=== PATIENT | male | born 1970 | race Caucasian/White ===

== ENCOUNTER 2016-04-07 21:23 | Emergency (ER) | payer OTHER ==
[~2016-04-07] VITALS: Ht 182.9 cm; Wt 92.9 kg
[~2016-04-07 21:23] MED LIST: ADVIN25050 INH; ALBINS INH; ALBU1AER9 INH; BENZ1SOL OT; CIPR-255 PO; FLNIN NAE; LOSA50TA54 PO; METH5TAB4 PO; NEOM1SUS21 OP; RMR15 PO; ZOLP10TA PO
[2016-04-07 21:29] VITALS: TEMP 36.8; Ht 182.9 cm; Wt 92.9 kg
[2016-04-07] MEDS ORDERED: LOSA100T65 PO (21:59)
[2016-04-07] MEDS ORDERED: RTL10 PO ×2 (21:59)
[2016-04-07] MEDS ORDERED: PRZ/40 PO (21:59)
[2016-04-07] MEDS ORDERED: ATV1 PO (21:59)
[2016-04-07] MEDS ORDERED: DOXE25CA2 PO (21:59)
[2016-04-07] MEDS ORDERED: FLUO20CA36 PO (21:59)
[2016-04-07] MEDS ORDERED: VNTHFA/IN INH (22:01)
[2016-04-07] MEDS ORDERED: ALBINS/ INH (22:03)
[2016-04-07] MEDS ORDERED: ALBUT/IPRATROP 3MG/0.5MG NEB 3 ML VIAL INH STA (22:10)
[2016-04-07] MEDS ORDERED: DEXAMETHASONE SOD INJ 10 MG/ML VIAL IM ONE (22:15)
[2016-04-07] MEDS ORDERED: AZITHROMYCIN 250 MG TAB PO ONE (22:15)
[2016-04-07] MEDS ORDERED: PRED50TA PO (23:23)
[2016-04-07] MEDS ORDERED: ZTHM250 PO (23:23)
--- NOTE | 2016-04-07 23:24 | EMERGENCY ROOM VISIT NOTE ---
History First contact with patient: 22:00 Chief Complaint: RESPIRATORY PROBLEMS Stated Complaint: CONGESTION, TROUBLE BREATHING, COUGHING, ASTHMA Nursing Triage Summary: last nite started asthma History of Present Illness The patient is a 45 year old male who presents to the Emergency Department by private vehicle for evaluation of his cough, congestion, short of breath. The patient reports a long-standing history of asthma. His asthma has actually been well controlled over the last 1.5 years after having sinus surgery and receiving allergy shots. He reports that he does have a nebulizer at home which she uses when the symptoms occur, however he does not have the fittings to use the treatments. Yesterday after work when walking into the cold environment he developed increasing cough and wheezing. He reports that this is consistent with all prior episodes of asthma exacerbation. The patient rates his current discomfort as a 3/10. He denies any fevers, chills, chest pain, palpitations, hemoptysis, productive cough, nausea, vomiting, or abdominal pain. Review of Systems A complete 10-point Review of Systems was discussed with the patient, with pertinent positives and negatives listed in the History of Present Illness. All remaining Review of Systems questions can be considered negative unless otherwise specified. Social History Smoking Status: Current Every Day Smoker Smokeless Tobacco Use: No Alcohol Use: none Marital Status: single Current/Historical Medications Scheduled Azithromycin (Azithromycin), 1 TAB PO DAILY Fluoxetine HCl (Fluoxetine HCl), 20 MG PO QPM Fluoxetine Hcl (Prozac), 40 MG PO QAM Losartan Potassium (Cozaar), 100 MG PO DAILY Methylphenidate HCl (Methylphenidate HCl), 5 MG PO AFTERNOON Methylphenidate HCl (Methylphenidate HCl), 10 MG PO QAM Prednisone (Prednisone), 50 MG PO DAILY Scheduled PRN Albuterol Hfa (Ventolin Hfa), 2 PUFFS INH QID PRN for Shortness of Breath Albuterol Sulf (Proventil 0.083% 2.5MG/3ML), 2.5 MG INH Q4H PRN for SOB/Wheezing Doxepin Hcl (Sinequan), 50-75 MG PO HS PRN for Sleep Lorazepam (Lorazepam), 1 MG PO DAILY PRN for Anxiety Allergies Coded Allergies: No Known Allergies (Unverified , NONE, 04/02/11) Physical Exam Vital Signs Date Time Temp Pulse Resp B/P Pulse Ox O2 Delivery O2 Flow Rate FiO2 1/15/17 23:26 81 18 100/71 95 04/07/16 23:01 81 18 100/ 95 Room Air 04/07/16 21:51 Room Air 04/07/16 21:29 36.8 100 20 107/71 96 Room Air Pain Rating (0-10): 3 Physical Exam VITAL SIGNS - Vital signs and nursing notes were reviewed. GENERAL - 45-year-old male appearing his stated age who is in no acute distress. Communicates well with provider and answers questions appropriately. HEAD - NC/AT. EYES - PERRL with EOMI bilaterally. Sclera anicteric. Palpebral conjunctiva pink and moist with no injection noted. EARS - No deformities of external structures noted on gross examination bilaterally. No pain elicited with palpation of the tragus bilaterally. External auditory canals without discharge or otorrhea. Tympanic membranes pearly louis without retraction or bulging. NOSE - Midline and without cyanosis. No epistaxis or purulent drainage noted. Septum midline without deviation or septal hematoma noted. MOUTH/OROPHARYNX - Without perioral cyanosis. Buccal mucosa pink and moist and without leukoplakia. Tongue midline with equal elevation of palate bilaterally. No tonsillar hypertrophy, erythema, or exudates noted. Good dentition noted. NECK - Neck with FROM. Supple to palpation. LUNGS - Chest wall symmetric without accessory muscle use, intercostals retractions, or central cyanosis. Normal vesicular breath sounds CTA B/L. No wheezes, rales, or rhonchi appreciated. CARDIAC - RRR with S1/S2. No murmur, rubs, or gallops appreciated. No reproducible tenderness to palpation appreciated over the anterior chest wall. ABDOMEN - Abdominal contour flat and without pulsations or visible masses. BS normoactive all four quadrants. No tenderness, palpable masses, hepatosplenomegaly, or ascites noted. PSYCH - A&Ox3 and cooperates fully with examiner. Pt is very pleasant and interacts well with examiner. Medical Decision & Procedures Medications Administered Medications (Trade) Dose Ordered Sig/Carmen Route Start Time Stop Time Status Last Admin Dose Admin Dexamethasone Sodium Phosphate (Decadron Inj) 10 mg NOW ONCE IM 04/07/16 22:15 04/07/16 22:16 DC 04/07/16 22:19 10 MG Azithromycin (Zithromax Tab) 500 mg NOW ONCE PO 04/07/16 22:15 04/07/16 22:16 DC 04/07/16 22:20 500 MG Albuterol/ Ipratropium (Duoneb) 3 ml NOW STAT INH 04/07/16 22:10 04/07/16 22:12 DC 04/07/16 22:18 3 ML ED Course Patient was seen and evaluated by myself. I had a lengthy conversation with the patient regarding symptoms. Patient was offered chest x-ray which she declined. I do not feel that is absolutely necessary at this point. He was provided 10 mg Decadron intramuscularly as well as initial dose of azithromycin orally. He was provided with 1 DuoNeb treatment. The patient was provided the fittings for home for his nebulizer machine. He will be treated with azithromycin and prednisone in the outpatient setting. He has nebulizer treatments for home. The patient will return for any changing or worsening symptoms. Patient discharged home afebrile and in good condition. Medical Decision Given the patient's presentation and stated complaint, I did elect to perform the above-mentioned workup. The patient presents today with congestion and short of breath. The patient has what appears to be reactive airway disease which is worsened with the cold weather. He has no fever. He is not hypoxic. He is not tachypneic. He has no chest pain. His symptoms are consistent with acute asthma exacerbation and possible underlying bronchitis. The patient responded well to DuoNeb treatment. He has breathing treatments at home. He will be placed on prednisone as well as antibiotics. He'll follow-up with his primary care provider from today's visit or return for any changing or worsening symptoms. Patient discharged home afebrile and in good condition. In the evaluation and treatment of this patient, the following differential diagnoses were considered: OH, ASC, Dysrhythmia, Angina, Mediastinitis, GERD, Esophagitis, PE, Pneumonia, Bronchitis, Costochondritis, Rib Fracture, Zoster. Impression Primary Impression: Asthma exacerbation Additional Impression: Reactive airway disease Departure Information Dispostion Home / Self-Care Condition GOOD Prescriptions Azithromycin (Azithromycin) 250 Mg Tab 1 TAB PO DAILY for 4 Days, #4 TAB Prov: Sherif Oconnor PA-C 04/07/16 Prednisone (Prednisone) 50 Mg Tab 50 MG PO DAILY for 4 Days, #4 TAB Prov: Sherif Oconnor PA-C 04/07/16 Referrals Daniel Payne M.D. (PCP) Patient Instructions My [facility] Additional Instructions You have been seen in the emergency department today for an asthma exacerbation. Please use your nebulizers at home as prescribed. You were prescribed Azithromycin to be taken as prescribed. This is an antibiotic. All antibiotics have the potential to cause diarrhea. Stop this medication and contact a medical provider if you were to develop any significant adverse side effects including: wheezing, shortness of breath, passing out, vomiting, or a diffuse rash. Always take antibiotics as directed and COMPLETE the ENTIRE course regardless of the improvement of your symptoms. You have been prescribed Prednisone 50 mg to be taken orally once a day for the next 4 days. This is an anti-inflammatory medicine to be used to help minimize your symptoms. You should take the COMPLETE course of the medication. For pain control, you can use the following [id number] medicines (if >12 yo): - Regular strength (325mg/tab) Tylenol (acetaminophen) 2 tabs every 4-6 hours as needed. Do not exceed 12 tablets in a 24 hour period. Avoid taking more than 4 grams (4000 mg) of Tylenol per day. This includes any other sources of acetaminophen you may take on a regular basis. - Regular strength (200 mg/tab) Advil (ibuprofen) 1-2 tabs every 4-6 hours as needed. Do not exceed a dose of 3200 mg per day. Please follow-up with your primary care provider from today's visit. Return for any changing or worsening symptoms. Problem Qualifiers
[2016-04-07 23:26] VITALS: BP 100/71; PULSE 81; O2SAT 95
== END 2016-04-07 23:26 | disposition home or self-care (01) ==
LOC: C.EDB 21:24
DX: J45.901 Unspecified asthma with (acute) exacerbation (principal); F17.200 Nicotine dependence, unspecified, uncomplicated

== ENCOUNTER 2016-07-12 18:15 | Emergency (ER) | payer OTHER ==
[~2016-07-12] VITALS: Ht 182.9 cm; Wt 86.0 kg
[~2016-07-12 18:15] MED LIST changes: -ADVIN25050 INH; -ALBINS INH; +ALBINS/ INH; -ALBU1AER9 INH; +ATV1 PO; +AZIT-57 PO; -BENZ1SOL OT; -CIPR-255 PO; +DOXE25CA2 PO; -FLNIN NAE; +FLUO20CA36 PO; +LOSA100T65 PO; -LOSA50TA54 PO; -METH5TAB4 PO; -NEOM1SUS21 OP; +PRZ/40 PO; -RMR15 PO; +RTL10 PO; +VNTHFA/IN INH; -ZOLP10TA PO
[2016-07-12 18:23] VITALS: TEMP 36.9; Ht 182.9 cm; Wt 86.0 kg
[2016-07-12] MEDS ORDERED: KETOROLAC TROMETHAMINE 60 MG/2 ML VIAL IM STA (19:47)
--- NOTE | 2016-07-12 19:53 | EMERGENCY ROOM VISIT NOTE ---
History Report prepared by Shannan: Hu Patel Under the Supervision of: Dr. Bernardino Telles D.O. First contact with patient: 19:43 Chief Complaint: BACK PAIN Stated Complaint: SEVER LOW BACK/KIDNEY PAIN History of Present Illness The patient is a 46 year old male who presents to the Emergency Room with complaints of worsened lower back pain for the past two days. The patient has chronic back pain but notes increased pain. He describes a pressure sensation in his lower back. He has been nauseous for the past two days but has not vomited. The patient denies hematuria, pain with urination, or rectal bleeding. He could not get an appointment with his PCP today. He notes that he has been doing more lifting than usual at work lately. He has a history of kidney disease , including UTIs and kidney stones. He follows up with [facility] for his back. The patient has a history of asthma. Source of History: patient Onset: two days ago Position: back (lower) Quality: pressure Timing: worsening Associated Symptoms: + nausea, No hematochezia, No melena, No urinary symptoms, No vomiting Review of Systems See HPI for pertinent positives & negatives. A total of 10 systems reviewed and were otherwise negative. Past Medical & Surgical Medical Problems: (1) Otitis externa of both ears (2) Otitis media of both ears (3) Urinary tract infection Family History No pertinent family history Social History Smoking Status: Current Every Day Smoker Alcohol Use: none Marital Status: single Current/Historical Medications Scheduled Azithromycin (Azithromycin), 1 TAB PO DAILY Fluoxetine HCl (Fluoxetine HCl), 20 MG PO QPM Fluoxetine Hcl (Prozac), 40 MG PO QAM Losartan Potassium (Cozaar), 100 MG PO DAILY Methylphenidate HCl (Methylphenidate HCl), 5 MG PO AFTERNOON Methylphenidate HCl (Methylphenidate HCl), 10 MG PO QAM Scheduled PRN Albuterol Hfa (Ventolin Hfa), 2 PUFFS INH QID PRN for Shortness of Breath Albuterol Sulf (Proventil 0.083% 2.5MG/3ML), 2.5 MG INH Q4H PRN for SOB/Wheezing Doxepin Hcl (Sinequan), 50-75 MG PO HS PRN for Sleep Lorazepam (Lorazepam), 1 MG PO DAILY PRN for Anxiety Allergies Coded Allergies: No Known Allergies (Unverified , NONE, 04/02/11) Physical Exam Vital Signs Date Time Temp Pulse Resp B/P Pulse Ox O2 Delivery O2 Flow Rate FiO2 07/12/16 20:10 89 16 121/79 98 07/12/16 18:23 36.9 87 16 133/85 97 Room Air Physical Exam GENERAL: Patient is awake, alert, and in no acute distress. Patient is resting comfortably and showing no signs of anxiety EYES: The conjunctivae are clear. The pupils are round and reactive. EARS, NOSE, MOUTH AND THROAT: The nose is without any evidence of any deformity. Mucous membranes are moist tongue is midline NECK: The neck is nontender and supple. RESPIRATORY: Normal respiratory effort is noted there is no evidence of wheezing rhonchi or rales CARDIOVASCULAR: Regular rate and rhythm noted there no murmurs rubs or gallops normal S1 normal S2 GASTROINTESTINAL: The abdomen is soft. Bowel sounds are present in all quadrants. Abdomen is nontender BACK: No midline tenderness or or step-off noted range of motion in flexion extension as well as rotation no signs of muscle spasm noted MUSCULOSKELETAL/EXTREMITIES: There is no evidence of gross deformity full range of motion is noted in the hips and shoulders SKIN: There is no obvious evidence of any rash. There are no petechiae, pallor or cyanosis noted. NEUROLOGIC: Patient is awake alert and oriented x3 strength is symmetric patellar reflexes are 2+ bilaterally Medical Decision & Procedures Laboratory Results Test 07/12/16 00:00 Urine Color YELLOW Urine Appearance CLEAR (CLEAR) Urine pH 5.0 (4.5-7.5) Urine Specific Salix 1.012 (1.000-1.030) Urine Protein NEG (NEG) Urine Glucose (UA) NEG (NEG) Urine Ketones NEG (NEG) Urine Occult Blood TRACE (NEG) Urine Nitrite NEG (NEG) Urine Bilirubin NEG (NEG) Urine Urobilinogen NEG (NEG) Urine Leukocyte Esterase NEG (NEG) Urine WBC (Auto) 1-5 /hpf (0-5) Urine RBC (Auto) 0-4 /hpf (0-4) Urine Hyaline Casts (Auto) 0 /lpf (0-5) Urine Epithelial Cells (Auto) 5-10 /lpf (0-5) Urine Bacteria (Auto) NEG (NEG) Laboratory results per my review. Medications Administered Medications (Trade) Dose Ordered Sig/Carmen Route Start Time Stop Time Status Last Admin Dose Admin Ketorolac Tromethamine (Toradol Inj) 60 mg NOW STAT IM 07/12/16 19:47 07/12/16 20:56 DC 07/12/16 19:52 60 MG ED Course 1942: The patient was evaluated in room B5. A complete history and physical examination were performed. 1946: Toradol 60 mg IM. 2051: Reassessed the patient. Discussed the findings with him. He verbalized understanding and agreement of the treatment plan. The patient is ready for discharge. Medical Decision Prior records/ancillary studies reviewed. Triage Nursing notes reviewed. The patient's history was concerning for back pain. Differential diagnosis: Etiologies such as musculoskeletal, disc herniation, fracture, aortic disease, metastatic disease, cord compression, discitis, infection, renal colic, gastrointestinal, acute exacerbation of chronic back pain, sciatica, cauda equina, as well as others were entertained. The patient is a 46-year-old male who presented to emergency department for evaluation of low back pain. The patient describes atraumatic low back pain which began a few days ago. The patient also has a history of urinary infection the past and thought this could be consistent with a urinary tract infection. The patient had no focal neurologic deficits. He was able to a mildly without difficulty. His pain appeared to be more related to musculoskeletal findings. The patient's urine did not have signs consistent with urinary tract infection. His urinalysis did dip for blood. I discussed this with the patient. He was encouraged to continue all medications as prescribed. He was treated with pain medication in the emergency department. He was also encouraged to follow-up with his primary care physician for further evaluation but return to the emergency department immediately if symptoms change worsen or the need arises. Impression Primary Impression: Low back pain Scribe Attestation The scribe's documentation has been prepared under my direction and personally reviewed by me in its entirety. I confirm that the note above accurately reflects all work, treatment, procedures, and medical decision making performed by me. Departure Information Dispostion Home / Self-Care Referrals Daniel Payne M.D. (PCP) Forms HOME CARE DOCUMENTATION FORM, IMPORTANT VISIT INFORMATION, Work Instructions Patient Instructions ED Back Pain Acute Chronic, My [facility] Additional Instructions Call your family to schedule a follow-up appointment. Rest and avoid any strenuous activity. Continue using Motrin and Tylenol as directed for pain. Problem Qualifiers Primary Impression: Low back pain Chronicity: chronic Back pain laterality: bilateral Sciatica presence: without sciatica Qualified Codes: M54.5 - Low back pain; G89.29 - Other chronic pain
[2016-07-12 20:10] VITALS: BP 121/79; PULSE 89; O2SAT 98
[2016-07-12 20:25] LABS: URINE APPEARANCE CLEAR (CLEAR); URINE BILIRUBIN NEG (NEG); URINE COLOR YELLOW; URINE NITRITE NEG (NEG); URINE SPECIFIC GRAVITY 1.012 (1.000-1.030); UROBILINOGEN NEG (NEG)
[2016-07-12 20:29] LABS: MANUAL MICROSCOPIC REQUIRED? NO; REVIEW REQ? NO
== END 2016-07-12 21:04 | disposition home or self-care (01) ==
LOC: C.EDB 18:16
DX: M54.5 Low back pain (principal); F17.200 Nicotine dependence, unspecified, uncomplicated; Z87.440 Personal history of urinary (tract) infections; Z86.19 Personal history of other infectious and parasitic diseases; Z79.899 Other long term (current) drug therapy

== ENCOUNTER → 2016-07-18 | Outpatient (CLI) | payer OTHER ==
[2016-07-18 15:05] LABS: BASO % 0.7 %; BASO ABS # 0.05 K/uL (0-0.2); COMPLETE YES; EOS % 2.6 %; IG% 0.1 %; LYMPH % 24.7 %; LYMPH ABS # 1.68 K/uL (1.2-3.4); MEAN CELL VOLUME 93.2 fL (80-100); MEAN CORPUSCULAR HEMOGLOBIN 32.8 pg (25-34); MEAN CORPUSCULAR HGB CONC 35.2 g/dl (32-36); MONO % 11.9 %; PLATELET COUNT 242 K/uL (130-400); RED BLOOD COUNT 4.72 M/uL (4.7-6.1)
[2016-07-18 16:00] LABS: ALT/SGPT 22 U/L (12-78); AST/SGOT 13 U/L (15-37); BLOOD UREA NITROGEN 10 mg/dl (7-18); BUN/CREATININE RATIO 12.3 (10-20); CALCIUM 8.4 mg/dl (8.5-10.1); CARBON DIOXIDE 26 mmol/L (21-32); CHLORIDE 108 mmol/L (98-107); CHOLESTEROL 137 mg/dl (0-200); CREATININE 0.83 mg/dl (0.60-1.40); GLUCOSE 93 mg/dl (70-99); POTASSIUM 3.9 mmol/L (3.5-5.1); SODIUM 141 mmol/L (136-145)
[2016-07-18 16:11] LABS: ALB/GLOB RATIO 1.2 (0.9-2); ALKALINE PHOSPHATASE 67 U/L (45-117); CHOLESTEROL/HDL RATIO 2.6; HDL CHOLESTEROL 52 mg/dl; LDL CHOLESTEROL CALCULATED 60 mg/dl; THYROID STIMULATING HORMONE 0.739 uIu/ml (0.300-4.500); TRIGLYCERIDES 127 mg/dl (0-150); VERY LOW DENSITY LIPOPROT CALC 25 mg/dl
== END | disposition home or self-care (01) ==
LOC: C.LAB 14:12
PROVIDERS: ATTEND Psychiatry & Neurology Geriatric Psychiatry
DX: Z79.899 Other long term (current) drug therapy (principal)

== ENCOUNTER → 2017-04-21 | Outpatient (CLI) | payer OTHER | END | disposition home or self-care (01) | LOC: C.LABSPEC 10:56 | PROVIDERS: ATTEND Nurse Practitioner | DX: M54.5 Low back pain (principal); R82.90 Unspecified abnormal findings in urine ==

== ENCOUNTER → 2017-04-21 | Outpatient (CLI) | payer OTHER ==
[2017-04-21 17:16] LABS: BASO % 0.7 %; BASO ABS # 0.05 K/uL (0-0.2); EOS % 2.6 %; HEMATOCRIT 43.9 % (42-52); HEMOGLOBIN 15.3 g/dL (14.0-18.0); IG# 0.02 K/uL (0.00-0.02); LYMPH % 27.5 %; LYMPH ABS # 2.11 K/uL (1.2-3.4); MEAN CELL VOLUME 92.8 fL (80-100); MEAN CORPUSCULAR HEMOGLOBIN 32.3 pg (25-34); MEAN CORPUSCULAR HGB CONC 34.9 g/dl (32-36); MEAN PLATELET VOLUME 9.4 fL (7.4-10.4); MONO % 9.5 %; MONO ABS # 0.73 K/uL (0.11-0.59); NEUT % 59.4 %; NEUT ABS # 4.55 K/uL (1.4-6.5); PLATELET COUNT 243 K/uL (130-400); RED CELL DISTRIBUTION WIDTH CV 12.6 % (11.5-14.5); RED CELL DISTRIBUTION WIDTH SD 42.5 fL (36.4-46.3); WHITE BLOOD COUNT 7.66 K/uL (4.8-10.8)
[2017-04-21 17:33] LABS: ALBUMIN 3.6 gm/dl (3.4-5.0); ALT/SGPT 22 U/L (12-78); AST/SGOT 17 U/L (15-37); BLOOD UREA NITROGEN 12 mg/dl (7-18); CALCIUM 8.1 mg/dl (8.5-10.1); CARBON DIOXIDE 26 mmol/L (21-32); CHOLESTEROL 152 mg/dl (0-200); CREATININE 0.81 mg/dl (0.60-1.40); GLUCOSE 89 mg/dl (70-99); POTASSIUM 3.9 mmol/L (3.5-5.1); SODIUM 137 mmol/L (136-145)
[2017-04-21 17:36] LABS: ALKALINE PHOSPHATASE 67 U/L (45-117); LDL CHOLESTEROL CALCULATED 92 mg/dl; TOTAL PROTEIN 6.7 gm/dl (6.4-8.2)
== END | disposition home or self-care (01) ==
LOC: C.LABBFT 13:45
PROVIDERS: ATTEND Nurse Practitioner
DX: I10 Essential (primary) hypertension (principal)

== ENCOUNTER 2017-05-22 21:03 | Emergency (ER) | payer OTHER ==
[~2017-05-22] VITALS: Ht 182.9 cm; Wt 86.4 kg
[2017-05-22 21:08] VITALS: TEMP 36.8; Ht 182.9 cm; Wt 86.4 kg
[2017-05-22] MEDS ORDERED: SODIUM CHLORIDE 0.9% 1000ML 1,000 ML IV STA (21:34)
[2017-05-22] MEDS ORDERED: KETOROLAC TROMETHAMINE 30 MG/ML VIAL IV STA (21:34)
[2017-05-22 21:56] LABS: BASO % 0.6 %; BASO ABS # 0.04 K/uL (0-0.2); EOS % 4.8 %; EOS ABS # 0.32 K/uL (0-0.5); HEMATOCRIT 40.8 % (42-52); HEMOGLOBIN 14.5 g/dL (14.0-18.0); IG# 0.01 K/uL (0.00-0.02); LYMPH % 38.8 %; LYMPH ABS # 2.57 K/uL (1.2-3.4); MEAN CELL VOLUME 90.5 fL (80-100); MEAN CORPUSCULAR HEMOGLOBIN 32.2 pg (25-34); MEAN CORPUSCULAR HGB CONC 35.5 g/dl (32-36); MEAN PLATELET VOLUME 8.7 fL (7.4-10.4); MONO % 11.2 %; MONO ABS # 0.74 K/uL (0.11-0.59); NEUT % 44.4 %; NEUT ABS # 2.94 K/uL (1.4-6.5); PLATELET COUNT 228 K/uL (130-400); RED CELL DISTRIBUTION WIDTH CV 12.7 % (11.5-14.5); RED CELL DISTRIBUTION WIDTH SD 41.9 fL (36.4-46.3); WHITE BLOOD COUNT 6.62 K/uL (4.8-10.8)
[2017-05-22 22:13] LABS: ALBUMIN 3.4 gm/dl (3.4-5.0); CALCIUM 8.7 mg/dl (8.5-10.1); CREATININE 0.64 mg/dl (0.60-1.40)
[2017-05-22 22:18] LABS: CKMB 1.6 ng/ml (0.5-3.6); TOTAL PROTEIN 6.6 gm/dl (6.4-8.2)
--- NOTE | 2017-05-22 22:25 | DIAGNOSTIC IMAGING REPORT ---
ABD/PELVIS WITHOUT FOR STONE CLINICAL HISTORY: 46 years-old Male presenting with R flank pain, urgency. TECHNIQUE: Multidetector CT of the abdomen and pelvis was performed without the use of intravenous contrast. IV contrast: None. A dose lowering technique was used consistent with the principles of ALARA (as low as reasonably achievable). COMPARISON: 04/07/2013. CT DOSE (mGy.cm): The estimated cumulative dose is 1269.52 mGy.cm. FINDINGS: Store Planner topogram: Unremarkable. Lung bases: Minimal basilar opacities, likely atelectasis. Normal heart size. Right gynecomastia. No pleural or pericardial effusion. Liver: Normal morphology. Normal density. Biliary: No gross biliary ductal dilatation allowing for noncontrast technique. Gallbladder decompressed. Pancreas: Normal noncontrast appearance. Spleen: Normal noncontrast appearance. Adrenal glands: Normal noncontrast appearance. Kidneys and ureters: Normal noncontrast appearance. No nephrolithiasis. No hydronephrosis. Normal ureters. Bladder: Mild circumferential bladder wall thickening. Pelvic organs: Normal noncontrast appearance. Bowel: Normal appendix. No bowel obstruction. Marked bowel wall thickening of the jejunum, with the wall measuring up to 10 mm in thickness. No perienteric inflammatory change. Significant small bowel fluid. Peritoneal cavity: No free fluid or intraperitoneal gas. Lymph nodes: No gross lymphadenopathy allowing for noncontrast technique. Vasculature: Atherosclerosis of the normal caliber abdominal aorta. Abdominal wall: Normal. Musculoskeletal: Normal. IMPRESSION: 1. Significant jejunal wall thickening without perienteric inflammatory change. Subtle additional finding of small bowel fluid greater than expected. These findings could be seen in the setting of a mild infectious enteritis or celiac disease among other less likely etiologies. 2. Circumferential bladder wall thickening could suggest cystitis. Correlate with urinalysis. Electronically signed by: Mansoor Santiago M.D. 05/22/2017 10:24 PM Dictated Date/Time: 05/22/2017 10:13 PM
[2017-05-22] MEDS ORDERED: NORCO 5/325MG HOME PACK PO STA (23:10)
[2017-05-22] MEDS ORDERED: HYDR-5688 PO (23:13)
--- NOTE | 2017-05-22 23:14 | EMERGENCY ROOM VISIT NOTE ---
History First contact with patient: 21:16 Chief Complaint: FLANK PAIN Stated Complaint: LOW BACK PAIN RADIATING TO RLQ/GROIN History of Present Illness The patient is a 46 year old male who presents to the Emergency Room via private vehicle with complaints of "low back pain radiating to right lower quadrant/groin". The patient states that for the past week his chronic low back pain has been worsening but now today he notes pain radiating from the right flank up into the right side of the inferior abdomen. He does note a history of kidney stones 1. He states that he feels as though he has increased urinary frequency. He also is feeling nauseous. He notes that he has a follow-up tomorrow with his family doctor. He rates his overall pain as a 6/10. No fevers. He also notes some bright red blood per rectum yesterday. He states this occurs after consuming ibuprofen. Review of Systems A complete 10-point Review of Systems was discussed with the patient, with pertinent positives and negatives listed in the History of Present Illness. All remaining Review of Systems questions can be considered negative unless otherwise specified. Past Medical/Surgical History Medical Problems: (1) Otitis externa of both ears (2) Otitis media of both ears (3) Urinary tract infection Family History No pertinent family history Social History Smoking Status: Current Every Day Smoker Alcohol Use: none Marital Status: single Current/Historical Medications Scheduled Azithromycin (Azithromycin), 1 TAB PO DAILY Fluoxetine HCl (Fluoxetine HCl), 20 MG PO QPM Fluoxetine Hcl (Prozac), 40 MG PO QAM Losartan Potassium (Cozaar), 100 MG PO DAILY Methylphenidate HCl (Methylphenidate HCl), 5 MG PO AFTERNOON Methylphenidate HCl (Methylphenidate HCl), 10 MG PO QAM Scheduled PRN Albuterol Hfa (Ventolin Hfa), 2 PUFFS INH QID PRN for Shortness of Breath Albuterol Sulf (Proventil 0.083% 2.5MG/3ML), 2.5 MG INH Q4H PRN for SOB/Wheezing Doxepin Hcl (Sinequan), 50-75 MG PO HS PRN for Sleep Hydrocodone/Acetaminophen 5MG/325MG (Calhoun 5MG/325MG), 1 TABLET PO Q4H PRN for Pain Lorazepam (Lorazepam), 1 MG PO DAILY PRN for Anxiety Physical Exam Vital Signs Date Time Temp Pulse Resp B/P (MAP) Pulse Ox O2 Delivery O2 Flow Rate FiO2 05/22/17 23:27 62 18 134/82 97 05/22/17 22:23 60 18 137/84 97 Room Air 05/22/17 21:08 36.8 91 18 175/89 96 Room Air Physical Exam VITAL SIGNS - Vital signs and nursing notes were reviewed. Stable. GENERAL -46-year-old male appearing his stated age who is in no acute distress. Communicates well with provider and answers questions appropriately. SKIN - Without rashes. No petechial rashes. HEAD - NC/AT. EYES - Sclera anicteric. EARS - No deformities of external structures noted on gross examination bilaterally. NOSE - Midline and without cyanosis. No epistaxis or purulent drainage noted. MOUTH/OROPHARYNX - Without perioral cyanosis. NECK - Neck with FROM. LUNGS - Chest wall symmetric without accessory muscle use, intercostals retractions, or central cyanosis. Normal vesicular breath sounds CTA B/L. No wheezes, rales, or rhonchi appreciated. CARDIAC - RRR with S1/S2. No murmur, rubs, or gallops appreciated. ABDOMEN - Abdominal contour normal without pulsations or visible masses. BS normoactive all four quadrants. There is periumbilical to right lower quadrant tenderness noted. No palpable masses, hepatosplenomegaly, or ascites noted. RECTAL: Unremarkable. Hemoccult negative. Medical Decision & Procedures ER Provider Diagnostic Interpretation: ABD/PELVIS WITHOUT FOR STONE CLINICAL HISTORY: 46 years-old Male presenting with R flank pain, urgency. TECHNIQUE: Multidetector CT of the abdomen and pelvis was performed without the use of intravenous contrast. IV contrast: None. A dose lowering technique was used consistent with the principles of ALARA (as low as reasonably achievable). COMPARISON: 04/07/2013. CT DOSE (mGy.cm): The estimated cumulative dose is 1269.52 mGy.cm. FINDINGS: [employer] topogram: Unremarkable. Lung bases: Minimal basilar opacities, likely atelectasis. Normal heart size. Right gynecomastia. No pleural or pericardial effusion. Liver: Normal morphology. Normal density. Biliary: No gross biliary ductal dilatation allowing for noncontrast technique. Gallbladder decompressed. Pancreas: Normal noncontrast appearance. Spleen: Normal noncontrast appearance. Adrenal glands: Normal noncontrast appearance. Kidneys and ureters: Normal noncontrast appearance. No nephrolithiasis. No hydronephrosis. Normal ureters. Bladder: Mild circumferential bladder wall thickening. Pelvic organs: Normal noncontrast appearance. Bowel: Normal appendix. No bowel obstruction. Marked bowel wall thickening of the jejunum, with the wall measuring up to 10 mm in thickness. No perienteric inflammatory change. Significant small bowel fluid. Peritoneal cavity: No free fluid or intraperitoneal gas. Lymph nodes: No gross lymphadenopathy allowing for noncontrast technique. Vasculature: Atherosclerosis of the normal caliber abdominal aorta. Abdominal wall: Normal. Musculoskeletal: Normal. IMPRESSION: 1. Significant jejunal wall thickening without perienteric inflammatory change. Subtle additional finding of small bowel fluid greater than expected. These findings could be seen in the setting of a mild infectious enteritis or celiac disease among other less likely etiologies. 2. Circumferential bladder wall thickening could suggest cystitis. Correlate with urinalysis. Electronically signed by: Mansoor Santiago M.D. 05/22/2017 10:24 PM Dictated Date/Time: 05/22/2017 10:13 PM Laboratory Results 05/22/17 21:46 Red Blood Count 4.51, Mean Corpuscular Volume 90.5, Mean Corpuscular Hemoglobin 32.2, Mean Corpuscular Hemoglobin Concent 35.5, Mean Platelet Volume 8.7, Neutrophils (%) (Auto) 44.4, Lymphocytes (%) (Auto) 38.8, Monocytes (%) (Auto) 11.2, Eosinophils (%) (Auto) 4.8, Basophils (%) (Auto) 0.6, Neutrophils # (Auto ) 2.94, Lymphocytes # (Auto) 2.57, Monocytes # (Auto) 0.74, Eosinophils # (Auto ) 0.32, Basophils # (Auto) 0.04 05/22/17 21:46 Test 05/22/17 21:46 05/22/17 22:00 White Blood Count 6.62 K/uL (4.8-10.8) Red Blood Count 4.51 M/uL (4.7-6.1) Hemoglobin 14.5 g/dL (14.0-18.0) Hematocrit 40.8 % (42-52) Mean Corpuscular Volume 90.5 fL (80-100) Mean Corpuscular Hemoglobin 32.2 pg (25-34) Mean Corpuscular Hemoglobin Concent 35.5 g/dl (32-36) Platelet Count 228 K/uL (130-400) Mean Platelet Volume 8.7 fL (7.4-10.4) Neutrophils (%) (Auto) 44.4 % Lymphocytes (%) (Auto) 38.8 % Monocytes (%) (Auto) 11.2 % Eosinophils (%) (Auto) 4.8 % Basophils (%) (Auto) 0.6 % Neutrophils # (Auto) 2.94 K/uL (1.4-6.5) Lymphocytes # (Auto) 2.57 K/uL (1.2-3.4) Monocytes # (Auto) 0.74 K/uL (0.11-0.59) Eosinophils # (Auto) 0.32 K/uL (0-0.5) Basophils # (Auto) 0.04 K/uL (0-0.2) RDW Standard Deviation 41.9 fL (36.4-46.3) RDW Coefficient of Variation 12.7 % (11.5-14.5) Immature Granulocyte % (Auto) 0.2 % Immature Granulocyte # (Auto) 0.01 K/uL (0.00-0.02) Anion Gap 6.0 mmol/L (3-11) Est Creatinine Clear Calc Drug Dose 158.3 ml/min Estimated GFR () 136.1 Estimated GFR (Non- 117.4 BUN/Creatinine Ratio 18.3 (10-20) Calcium Level 8.7 mg/dl (8.5-10.1) Magnesium Level 2.1 mg/dl (1.8-2.4) Total Bilirubin 0.3 mg/dl (0.2-1) Aspartate Amino Transf (AST/SGOT) 17 U/L (15-37) Alanine Aminotransferase (ALT/SGPT) 22 U/L (12-78) Alkaline Phosphatase 69 U/L (45-117) Total Creatine Kinase 138 U/L (39-308) Creatine Kinase MB 1.6 ng/ml (0.5-3.6) Creatine Kinase MB Ratio 1.2 (0-3.0) Total Protein 6.6 gm/dl (6.4-8.2) Albumin 3.4 gm/dl (3.4-5.0) Globulin 3.2 gm/dl (2.5-4.0) Albumin/Globulin Ratio 1.1 (0.9-2) Urine Color YELLOW Urine Appearance CLEAR (CLEAR) Urine pH 5.5 (4.5-7.5) Urine Specific [place] 1.005 (1.000-1.030) Urine Protein NEG (NEG) Urine Glucose (UA) NEG (NEG) Urine Ketones NEG (NEG) Urine Occult Blood TRACE (NEG) Urine Nitrite NEG (NEG) Urine Bilirubin NEG (NEG) Urine Urobilinogen NEG (NEG) Urine Leukocyte Esterase NEG (NEG) Urine WBC (Auto) 1-5 /hpf (0-5) Urine RBC (Auto) 0-4 /hpf (0-4) Urine Hyaline Casts (Auto) 0 /lpf (0-5) Urine Epithelial Cells (Auto) 0-5 /lpf (0-5) Urine Bacteria (Auto) NEG (NEG) Medications Administered Medications (Trade) Dose Ordered Sig/Carmen Route Start Time Stop Time Status Last Admin Dose Admin Sodium Chloride 1,000 ml @ 999 mls/hr Q1H1M STAT IV 05/22/17 21:34 05/22/17 22:34 DC 05/22/17 21:57 999 MLS/HR Ketorolac Tromethamine (Toradol Inj) 30 mg NOW STAT IV 05/22/17 21:34 05/22/17 21:36 DC 05/22/17 21:58 30 MG Acetaminophen/ Hydrocodone Bitart (Calhoun 5/325mg Home Pack) 1 homepack UD STAT PO 05/22/17 23:10 05/22/17 23:11 DC 05/22/17 23:19 1 HOMEPACK Medical Decision Patient was seen and evaluated as above. He presents to us today with right- sided abdominal pain. He is nontoxic on exam. After obtaining a thorough history and physical examination the above work up was performed. CBC reveals no leukocytosis. No concerning anemia. Metabolic panel reveals no evidence of kidney or liver failure. Urine negative for infection. Trace occult blood noted. CT scan of the abdomen and pelvis were obtained without contrast looking for stones secondary to his presentation. This does reveal significant thickening of the small bowel. This was discussed with the attending physician , and subsequently the on-call GI specialist, Dr. Kearns. At this time the patient is to utilize a bland and soft diet and to call the GI specialist office tomorrow to schedule follow-up for early next week. At this time no antibiotics will be added. A short course of pain medication will be provided. No red flags in the [place] drug monitoring system. He is to follow with the family doctor tomorrow as scheduled. He is to return with worsening. The patient was educated upon management, had questions answered prior to discharge , and was discharged home in good condition. Case was discussed with the attending physician I attest that I have personally reviewed the patient medication list. The patient's blood pressure was reviewed and was found to be elevated. He is to follow with his family doctor tomorrow. In the evaluation and treatment of this patient the following differential diagnoses were entertained: Appendicitis, gastroenteritis, UTI, bowel obstruction, kidney stone, among others. Impression Primary Impression: Right flank pain Departure Information Dispostion Home / Self-Care Condition GOOD Prescriptions Hydrocodone/Acetaminophen 5MG/325MG (Calhoun 5MG/325MG) Tab 1 TABLET PO Q4H Y for Pain, #12 TAB For Initial Treatment Prov: Chris Deleon PA-C 05/22/17 Referrals Daniel Payne M.D. (PCP) Hosea Kearns D.O. Patient Instructions ED Diet [employer], My [facility] [place] [facility] Additional Instructions You have been treated in the Emergency Department your Abdominal Pain. Laboratory results and imaging studies have ruled out any emergent causes for your abdominal pain which would warrant admission or surgery. You have been prescribed NORCO to be used for pain control. This is a narcotic medication. You cannot drive or consume alcohol while on this medicine. This medicine should only be used for pain that cannot be controlled with over-the- counter pain medicines. PLEASE NO ADDITIONAL TYLENOL/ACETAMINOPHEN with this For pain control, you can use the following [id number] medicines: - Regular strength (325mg/tab) Tylenol (acetaminophen) 2 tabs every 4-6 hours as needed. Do not exceed 12 tablets in a 24 hour period. Avoid taking more than 3 grams (3000 mg) of Tylenol per day. This includes any other sources of acetaminophen you may take on a regular basis. - Regular strength (200 mg/tab) Advil (ibuprofen) 1-2 tabs every 4-6 hours as needed. Do not exceed a dose of 3200 mg per day. Drink plenty of water and stay well hydrated. As with any trip to the Emergency Department, you should follow-up with your Primary Care Provider from today's visit. I discussed your case this evening with Dr. Kearns. He is a GI specialist. These call his office to schedule follow-up. I recommend a bland diet with soft foods for the next few days. Return to the emergency department if your symptoms persist despite treatment plan outlined above or if the following symptoms occur: increased fevers, chills , worsening nausea/vomiting, blood in your stool or urine.
[2017-05-22 23:27] VITALS: BP 134/82; PULSE 62; O2SAT 97
== END 2017-05-22 23:29 | disposition home or self-care (01) ==
LOC: C.EDB 21:06 → C.EDC 23:29
DX: R10.31 Right lower quadrant pain (principal); F17.200 Nicotine dependence, unspecified, uncomplicated; Z87.442 Personal history of urinary calculi

== ENCOUNTER → 2017-05-29 | Outpatient (CLI) | payer OTHER ==
[~2017-05-29] MED LIST changes: +HYDR-5688 PO
--- NOTE | 2017-05-29 11:18 | DIAGNOSTIC IMAGING REPORT ---
GI W/AIR SMALL BOWEL ROUTINE CLINICAL HISTORY: ABNORMAL CT,CHANGE IN BOWEL HABITS COMPARISON STUDY: CT 05/22/2017 FLUOROSCOPY TIME: 3.7 minutes. FINDINGS: Patient initiates his swallowing function well. Esophagus is normal in course and caliber. Mild reflux. Hypertrophic change of the gastric mucosal folds suggesting potential gastritis. Spasm and irritability of the duodenal bulb as well as duodenal sweep. Hypertrophic change as well as a component of lymphoid hyperplasia of the duodenal sweep and proximal small bowel. Right shoulder min small bowel shows hypertrophic change of the mucosal folds. There are no obstructive changes. Terminal ileum is unremarkable. Spot films the terminal ileum are within normal limits. There is good flow of contrast to the a sending colon. IMPRESSION: 1. Hypertrophic change of the gastric mucosal/duodenal mucosal folds. 2. Edematous change with potential additional underlying lymphoid hyperplasia of the duodenal sweep and proximal to mid small bowel. 3. Diagnostic considerations include a gastritis/duodenitis, versus the possibility of an inflammatory bowel process and/or Crohn's-type disease with secondary gastritis/lymphoid hyperplasia. 4. No evidence for obstructive change. 5. Endoscopic evaluation is suggested The above report was generated using voice recognition software. It may contain grammatical, syntax or spelling errors. Electronically signed by: Donald Coles M.D. 05/29/2017 11:17 AM Dictated Date/Time: 05/29/2017 11:04 AM
== END | disposition home or self-care (01) ==
LOC: C.RAD 09:29
PROVIDERS: ATTEND Registered Nurse
DX: R19.4 Change in bowel habit (principal); R93.5 Abnormal findings on diagnostic imaging of other abdominal regions, including retroperitoneum; K31.89 Other diseases of stomach and duodenum

== ENCOUNTER → 2017-06-16 | Day surgery (SDC) | payer OTHER ==
[2017-06-09 08:01] VITALS: Ht 180.3 cm; Wt 81.8 kg
[~2017-06-16] VITALS: Ht 180.3 cm; Wt 81.8 kg
[~2017-06-16] MED LIST changes: +ATV/1 PO; -ATV1 PO; -AZIT-57 PO; -DOXE25CA2 PO; -HYDR-5688 PO; +LIDOCAINE HCL 2% 2 ML VIAL (20MG/ML) ONE; +METH10TA4 PO; +METH5TAB4 PO; +PROPOFOL IV EMULSION 10 MG/ML 20 ML VIAL IV ONE; -RTL10 PO; +SNQ/25 PO; +SODIUM CHLORIDE 0.9% 500ML 500 ML IV ONE
--- NOTE | 2017-06-16 13:22 | Endo History and Physical ---
History & Physical Date of Service: Jun 16, 2017. Chief Complaint: Abnormal UGI series, Nausea Referring Physician: Dr. Madrigal History of Present Illness 46 yo CM who presents for EGD secondary to abnormal UGI series and nausea. Past Surgical History Hx Cardiac Surgery: No Hx Internal Defibrillator: No Hx Pacemaker: No Hx Abdominal Surgery: No Hx of Implantable Prosthesis: No Hx Post-Op Nausea and Vomiting: No Hx Cancer Surgery: No Hx Thoracic Surgery: No Hx Orthopedic: No Hx Urinary Tract Surgery: No Family History Polyp Social History Smoking Status: Current Every Day Smoker Hx Substance Use: No Hx Alcohol Use: Yes (MARIJUANA OCCASIONALLY) Allergies Coded Allergies: NO KNOWN DRUG ALLERGIES (Verified Allergy, Unknown, ., 06/16/17) Current Medications Reported Home Medications Medications Dose Route/Sig Max Daily Dose Days Date Category Ritalin (Methylphenidate HCl) 10 Mg Tab 10 Mg PO QAM 06/09/17 Reported Ritalin (Methylphenidate HCl) 5 Mg Tab 5 Mg PO QPM 06/09/17 Reported Sinequan (Doxepin HCl) 25 Mg Cap 25 Mg PO HS PRN 06/09/17 Reported Ativan (Lorazepam) 1 Mg Tab 1 Mg PO DAILY PRN 06/09/17 Reported Proventil 0.083% 2.5MG/3ML (Albuterol Sulf) 2.5 Mg/3 Ml Nebu 2.5 Mg INH Q4H PRN 04/07/16 Reported Ventolin Hfa (Albuterol) 200 Puffs/06953 Mcg Aers 2 Puffs INH QID PRN 04/07/16 Reported Prozac (Fluoxetine Hcl) 40 Mg Cap 40 Mg PO QAM 04/07/16 Reported Fluoxetine HCl 20 Mg Cap 20 Mg PO QPM 04/07/16 Reported Cozaar (Losartan Potassium) 100 Mg Tab 100 Mg PO QAM 04/07/16 Reported Vital Signs Weight (Kilograms): 81.82 Height (Feet): 5 Height (Inches): 11 Date Time Temp Pulse Resp B/P (MAP) Pulse Ox O2 Delivery O2 Flow Rate FiO2 06/16/17 12:26 36.6 58 16 122/65 (84) 95 Room Air Physical Exam General Appearance: WD/WN, no apparent distress Respiratory/Chest: Auscultation: breath sounds normal Cardiovascular: Heart Auscultation: RRR Abdomen: Bowel Sounds: normal Inspection & Palpation: soft, non-distended, no tenderness, guarding & rebound Assessment and Plan Assessment: 46 yo CM who presents for EGD secondary to abnormal UGI series and nausea. Plan: Proceed with EGD.
--- NOTE | 2017-06-16 13:59 | GI REPORT ---
Procedure Date: 06/16/2017 1:13 PM Procedure: Upper GI endoscopy Indications: Abnormal UGI series, Nausea Medicines: Monitored Anesthesia Care Complications: No immediate complications. Estimated Blood Loss: Estimated blood loss: none. Procedure: Pre-Anesthesia Assessment: - Prior to the procedure, a History and Physical was performed, and patient medications and allergies were reviewed. The patient's tolerance of previous anesthesia was also reviewed. The risks and benefits of the procedure and the sedation options and risks were discussed with the patient. All questions were answered, and informed consent was obtained. Prior Anticoagulants: The patient has taken no previous anticoagulant or antiplatelet agents. ASA Grade Assessment: II - A patient with mild systemic disease. After reviewing the risks and benefits, the patient was deemed in satisfactory condition to undergo the procedure. After obtaining informed consent, the endoscope was passed under direct vision. Throughout the procedure, the patient's blood pressure, pulse, and oxygen saturations were monitored continuously. The scope was introduced through the mouth, and advanced to the second part of duodenum. The upper GI endoscopy was accomplished without difficulty. The patient tolerated the procedure well. Findings: The esophagus was normal. Localized mild inflammation characterized by erythema was found in the gastric antrum. Biopsies were taken with a cold forceps for histology. The examined duodenum was normal. Biopsies were taken with a cold forceps for histology. Impression: - Normal esophagus. - Gastritis. Biopsied. - Normal examined duodenum. Biopsied. Recommendation: - Resume previous diet. - Continue present medications. - Use Protonix (pantoprazole) 40 mg PO daily. - Await pathology results. - Return to primary care physician as previously scheduled. Hosea Kearns, DO 06/16/2017 1:59:41 PM This report has been signed electronically. Note Initiated On: 06/16/2017 1:13 PM I attest to the content of the Intraoperative Record and orders documented therein, exceptions below
--- NOTE | 2017-06-16 14:05 | Discharge Instructions ---
Endoscopy Patient Instructions Date / Procedure(s) Performed Jun 16, 2017. EGD Allergy Information Coded Allergies: NO KNOWN DRUG ALLERGIES (Verified Allergy, Unknown, ., 06/16/17) Discharge Date / Findings Jun 16, 2017. Gastritis s/p biopsies Duodenal biopsies Medication Instructions Stopped Medication(s): NOTHING AFTER 2300 1) Start Protonix 40mg by mouth each morning 1/2 hour prior to breakfast. 2) OK to resume all medications today as prescribed Reported Home Medications Medications Dose Route/Sig Max Daily Dose Days Date Category Ritalin (Methylphenidate HCl) 10 Mg Tab 10 Mg PO QAM 06/09/17 Reported Ritalin (Methylphenidate HCl) 5 Mg Tab 5 Mg PO QPM 06/09/17 Reported Sinequan (Doxepin HCl) 25 Mg Cap 25 Mg PO HS PRN 06/09/17 Reported Ativan (Lorazepam) 1 Mg Tab 1 Mg PO DAILY PRN 06/09/17 Reported Proventil 0.083% 2.5MG/3ML (Albuterol Sulf) 2.5 Mg/3 Ml Nebu 2.5 Mg INH Q4H PRN 04/07/16 Reported Ventolin Hfa (Albuterol) 200 Puffs/87578 Mcg Aers 2 Puffs INH QID PRN 04/07/16 Reported Prozac (Fluoxetine Hcl) 40 Mg Cap 40 Mg PO QAM 04/07/16 Reported Fluoxetine HCl 20 Mg Cap 20 Mg PO QPM 04/07/16 Reported Cozaar (Losartan Potassium) 100 Mg Tab 100 Mg PO QAM 04/07/16 Reported Provider Instructions Activity Restrictions - No exercising or heavy lifting for 24 hours. - Do not drink alcohol the day of the procedure. - Do not drive a car or operate machinery until the day after the procedure. - Do not make any important decisions or sign important papers in 24 hours after the procedure. Following Day: - Return to full activity which may include returning to work/school. Diet Start your diet with liquids and light foods (jello, soup, juice, toast). Then eat your usual diet if not nauseated. Treatment For Common After Affects For mild abdominal pain, bloating, or excessive gas: - Rest - Eat lightly - Lie on right side Follow-Up Information Follow-up with Dr. Madrigal as scheduled Anesthesia Information What You Should Know You have had a procedure that required some medicine to reduce anxiety and discomfort. This treatment is called moderate sedation. After receiving the treatment, you may be sleepy, but you will be able to breathe on your own. The effects of the treatment may last for several hours. Follow these instructions along with Activity/Diet recommendations noted above: * Do NOT do anything where dizziness or clumsiness would be dangerous. * Rest quietly at home today, then you can be up and about tomorrow. * Have a responsible person stay with you the rest of today. * You may have had an I.V. today. If so, you may take the dressing off later today. Recommendations Call your doctor if: * Trouble breathing * Continuous vomiting for more than 24 hours * Temperature above 101 degrees * Severe abdominal pain or bloating * Pain not relieved by pain medicine ordered * There is increased drainage or redness from any incision * A large amount of rectal bleeding greater than 2-3 tablespoons. (If you had a polyp/s removed or have hemorrhoids, a small amount of blood - from the rectum is to be expected.) * You have any unanswered questions or concerns. IN THE EVENT OF A SERIOUS EMERGENCY, GO TO THE NEAREST EMERGENCY ROOM Your discharge instructions were prepared by provider Hosea Kearns. Patient Instructions Signature Page Andreea Dunham Patient (or Guardian) Signature/Date: I have read and understand the instructions given to me by my caregivers. Caregiver/RN/Doctor Signature/Date: The above-named patient and/or guardian has received patient instructions on this date. + Original Patient Signature Page (only) stays with chart. Please make copy for patient.
[2017-06-16 14:24] VITALS: BP 124/74; PULSE 53; O2SAT 97
--- NOTE | 2017-06-16 14:33 | Anesthesiology Progress Note ---
Anesthesia Post Op Note Date & Time Jun 16, 2017 at 14:32 Vital Signs Pain Intensity: 0 Vital Signs Past 12 Hours Date Time Temp Pulse Resp B/P (MAP) Pulse Ox O2 Delivery O2 Flow Rate FiO2 06/16/17 14:24 53 16 124/74 (91) 97 Room Air 06/16/17 14:09 52 16 110/53 (72) 97 Room Air 06/16/17 13:54 60 16 100/48 (65) 96 Room Air 06/16/17 12:26 36.6 58 16 122/65 (84) 95 Room Air Notes Mental Status: alert / awake / arousable, participated in evaluation Pt Amnestic to Procedure: Yes Nausea / Vomiting: adequately controlled Pain: adequately controlled Airway Patency, RR, SpO2: stable & adequate BP & HR: stable & adequate Hydration State: stable & adequate Anesthetic Complications: no major complications apparent
== END | disposition home or self-care (01) ==
LOC: C.GI 11:42
PROVIDERS: ATTEND Internal Medicine
DX: R93.3 Abnormal findings on diagnostic imaging of other parts of digestive tract (principal); K29.70 Gastritis, unspecified, without bleeding; J45.909 Unspecified asthma, uncomplicated; I10 Essential (primary) hypertension; F12.90 Cannabis use, unspecified, uncomplicated; F17.200 Nicotine dependence, unspecified, uncomplicated; Z79.899 Other long term (current) drug therapy

== ENCOUNTER → 2017-10-21 | Outpatient (CLI) | payer OTHER ==
[~2017-10-21] MED LIST changes: -LIDOCAINE HCL 2% 2 ML VIAL (20MG/ML) ONE; -PROPOFOL IV EMULSION 10 MG/ML 20 ML VIAL IV ONE; -SODIUM CHLORIDE 0.9% 500ML 500 ML IV ONE
[2017-10-21 15:33] LABS: BASO % 0.6 %; BASO ABS # 0.05 K/uL (0-0.2); EOS % 3.2 %; EOS ABS # 0.27 K/uL (0-0.5); HEMATOCRIT 41.5 % (42-52); HEMOGLOBIN 14.2 g/dL (14.0-18.0); IG# 0.02 K/uL (0.00-0.02); LYMPH % 27.2 %; LYMPH ABS # 2.27 K/uL (1.2-3.4); MEAN CELL VOLUME 94.1 fL (80-100); MEAN CORPUSCULAR HEMOGLOBIN 32.2 pg (25-34); MEAN CORPUSCULAR HGB CONC 34.2 g/dl (32-36); MEAN PLATELET VOLUME 9.4 fL (7.4-10.4); MONO % 10.3 %; MONO ABS # 0.86 K/uL (0.11-0.59); NEUT % 58.5 %; NEUT ABS # 4.88 K/uL (1.4-6.5); PLATELET COUNT 277 K/uL (130-400); RED CELL DISTRIBUTION WIDTH CV 12.6 % (11.5-14.5); RED CELL DISTRIBUTION WIDTH SD 43.7 fL (36.4-46.3); WHITE BLOOD COUNT 8.35 K/uL (4.8-10.8)
[2017-10-21 15:59] LABS: ALBUMIN 3.7 gm/dl (3.4-5.0); ALKALINE PHOSPHATASE 62 U/L (45-117); ALT/SGPT 15 U/L (12-78); AST/SGOT 14 U/L (15-37); BLOOD UREA NITROGEN 9 mg/dl (7-18); CALCIUM 8.6 mg/dl (8.5-10.1); CARBON DIOXIDE 27 mmol/L (21-32); CREATININE 0.77 mg/dl (0.60-1.40); GLUCOSE 93 mg/dl (70-99); POTASSIUM 3.9 mmol/L (3.5-5.1); SODIUM 140 mmol/L (136-145); TOTAL PROTEIN 6.7 gm/dl (6.4-8.2)
[2017-10-23 14:14] LABS: HERPES SIMPLEX AB IGG-2 < 0.90 INDEX (< 0.90)
== END | disposition home or self-care (01) ==
LOC: C.LAB1850 14:29
PROVIDERS: ATTEND Internal Medicine Infectious Disease
DX: Z20.2 Contact with and (suspected) exposure to infections with a predominantly sexual mode of transmission (principal)

== ENCOUNTER 2018-04-25 17:44 | Inpatient (IN) ==
[2018-04-25] MEDS ORDERED: PIPERACILL/TAZOBAC CONSULT ACTIVE PRN ×2 (18:25→20:24)
[2018-04-25] MEDS ORDERED: ONDANSETRON INJ 2 MG/ML 2 ML VIAL IV STA (18:25)
[2018-04-25] MEDS ORDERED: PIPERACILLIN/TAZOBACTAM 4.5 GM/120 ML BAG IV ONE (18:25)
[2018-04-25] MEDS ORDERED: HYDROmorphone INJ 1 MG/ML SYRINGE IV STA (18:25)
--- NOTE | 2018-04-25 18:52 | History & Physical Report ---
Date of Service April 25, 2018 Assessment & Plan (1) Perianal cellulitis: Nothing to drain at this time per CTAP Monitor on zosyn Gen surg c/s pending WBC elevated, febrile Hx of same with conservative management (2) Crohns disease: Stable Follows with Naty Madrigal if needed Pantoprozole use is related to Crohn's dx, not GERD (3) HTN (hypertension): continue home meds (4) Anxiety: continue home meds (5) Depression: continue home meds (6) Encounter for long-term current use of medication: Truvada for HIV prophylaxis Due for LFTs and HIV screening LFTs WNL HIV ordered (7) Tobacco use disorder: Nicotine patch (8) DVT prophylaxis: SCDs in case of need for OR intervention History of Present Illness Primary Care Provider: Daniel Payne III, 47 y/o M c/o rectal pain. Pt has been having ongoing and worsening rectal pain for the last 4-5 days. He has a hx of rectal abscesses and this was similar. He had two cysts that ruptured, but he noted another cyst that did not rupture and this is where he felt his pain was coming from. Pt was seen in the ED Friday night into Friday morning. He was recommended for admission with IV abx tx at that time, however pt left AMA due to some sort of urgent errands stating he would be back today. He was given scripts for cipro/flagyl and advised that this would likely not resolve this issue. Pt states he attempted to take care of his urgent matters, but his pain continued to worsen causing ambulation issues, so he returned. Pt cannot stand or sit comfortably. He has not had a bowel movement x3 days because it hurts too much to bear down. He has nausea without emesis. He started having fever yesterday. Pt always has LLQ pain which is believed to be Crohns. He has no new pain. Pt denies fever, SOB , chest pain, c/d, LE pain or swelling. In the past, his abscesses have either ruptured on their own or resolved with abx. Pain meds have helped, but pain is returned. Pt states he may have Crohn's. He is working with GI currently. Due to insurance issues, he is not on biologics but is awaiting approval for medical assistance for this. He states that it is thought that his abscess issues are related to his Crohn's. Pt takes Truvada for HIV prophylaxis. He is due for LFTS and HIV screening. Allergies Allergy/AdvReac Type Severity Reaction Status Date / Time No Known Drug Allergies Allergy Unknown . Verified 04/25/18 18:28 Home Medications Home Medications Medication Instructions Recorded Confirmed Type albuterol sulfate 2.5 mg CONTINUOUS NEBULIZATION Q4H 04/25/18 04/25/18 History PRN albuterol sulfate [Ventolin HFA] 2 puff INHALATION QID PRN 04/25/18 04/25/18 History ciprofloxacin HCl [Cipro] 500 mg PO BID #20 tab 04/25/18 04/25/18 Rx doxepin 25 mg PO HS PRN 04/25/18 04/25/18 History emtricitabine-tenofovir (TDF) 1 tab PO DAILY 04/25/18 04/25/18 History [Truvada] fluoxetine 20 mg PO QPM 04/25/18 04/25/18 History fluoxetine 40 mg PO QAM 04/25/18 04/25/18 History lorazepam 1 mg PO DAILY PRN 04/25/18 04/25/18 History losartan 100 mg PO QAM 04/25/18 04/25/18 History methylphenidate HCl 5 mg PO QPM 04/25/18 04/25/18 History methylphenidate HCl 10 mg PO QAM 04/25/18 04/25/18 History metronidazole [Flagyl] 500 mg PO Q8H #30 tab 04/25/18 04/25/18 Rx pantoprazole 40 mg PO BID 04/25/18 04/25/18 History Past Med/Surg History Medical History No significant past surgical history Crohns disease Darlyn-rectal abscess (Acute) Social History Feels Safe at Home: Yes Smoking Status: Current every day smoker Cigarettes per Day: 1ppd Hx Alcohol Use: Yes (occasionally) Hx Substance Use: Yes (MJ daily for pain control (back)) substance use type: marijuana Preferred Language: Turkish Review of Systems Pertinent positives and negatives reviewed in HPI--all others negative Physical Exam 2 Vital Signs (Past 24 Hours): Last Vital Signs Temp 37.4 C 04/25/18 17:48 Pulse 129 H 02/02/19 17:48 Resp 22 04/25/18 17:48 BP 113/78 04/25/18 17:48 Pulse Ox 97 04/25/18 17:48 Constitutional: WD/WN, vitals as above + acute distress (appears in pain) Eyes: normal visual nathan by confrontation and + anicteric sclerae Neck: normal visual inspection and trachea midline Respiratory: normal respiratory effort, lungs clear to auscultation Cardiovascular: Rate/Rhythm: regular rate and regular rhythm Gastrointestinal (Abdomen): Inspection/Auscultation: abdomen not distended Percussion/Palpation: abdomen soft; abdomen nontender Musculoskeletal: Head/Neck/Chest: normocephalic and head atraumatic negative for edema, peripheral pulses intact Skin: no rashes, warm and dry Neurologic: awake; not confused Speech / Cognition: normal speech Psychiatric: A+Ox3, euthymic affect Results & Data Diagnostic Findings CTAP: 1. Cellulitis along the medial gluteal cleft with significant inflammatory change in the ischiorectal fossae. 1.5 cm early abscess/phlegmon within the medial gluteal cleft. Possible inflammatory change of the inferior anus. No evidence of fistula. If there is clinical concern for fistula, a contrast-enhanced MR of the pelvis is more sensitive for this diagnosis. 2. Mild prostatic enlargement. Code Status & VTE Plan Code Status Full code VTE Prophylaxis Plan VTE Prophylaxis will be ordered: Yes
--- NOTE | 2018-04-25 19:10 | Emergency Department Note ---
ED Visit Note I was asked to aspirate this patient's buttock by Dr. Kelley. Please see his dictation for full history and physical. Informed oral consent was obtained from the patient. Left buttock and gluteal cleft was prepped with Betadine and draped with a sterile towel. A thorough inspection was performed. Firm area was palpated and is approximately 6 cm in diameter. There is a central necrotic core of approximately 6 mm in diameter. This was flaked off using an 18-gauge needle. 18-gauge needle was then passed through the central area and aspiration was attempted. This was unsuccessful. Immediately after removal of the needle, thick white pus began oozing from the puncture site. Needle was passed again and aspiration was attempted. No fluid was obtained. Upon removal , additional purulent liquid began oozing. This was expressed until no further pus was produced. The area was then irrigated with normal sterile saline using the 18-gauge needle until no further pus was visible. Hemostasis was achieved. Wound care precautions were reviewed. He may shower. He was encouraged to do warm soapy sitz baths several times per day to promote drainage. Please see Dr. Kelley's dictation for final management. .
[2018-04-25 19:16] LABS: Basophils # (auto) 0.04 K/uL (0-0.2); Basophils % (auto) 0.2 %; Eosinophils # (auto) 0.36 K/uL (0-0.5); Eosinophils % (auto) 1.6 %; Hematocrit (blood only) 39.9 % (42-52); Hemoglobin 14.2 g/dL (14.0-18.0); Immature Granulocytes # (auto) 0.08 K/uL (0.00-0.02); Immature Granulocytes % (auto) 0.4 %; Lymphocytes # (auto) 1.87 K/uL (1.2-3.4); Lymphocytes % (auto) 8.4 %; Mean Corpuscular Hgb Conc 35.6 g/dL (32-36); Mean Corpuscular Volume 97.3 fL (80-100); Mean Platelet Volume 9.1 fL (7.4-10.4); Monocytes # (auto) 2.22 K/uL (0.11-0.59); Monocytes % (auto) 9.9 %; Neutrophils # (auto) 17.78 K/uL (1.4-6.5); Neutrophils % (auto) 79.5 %; Platelet Count 193 K/uL (130-400); RDW Coefficient of Variation 12.5 % (11.5-14.5); RDW Standard Deviation 44.3 fL (36.4-46.3); White Blood Count 22.35 K/uL (4.8-10.8)
[2018-04-25] MEDS ORDERED: ALBUTEROL HFA 8 GM INHALER INH PRN (20:24)
[2018-04-25] MEDS ORDERED: ACETAMINOPHEN 325 MG TAB PO PRN (20:24)
[2018-04-25] MEDS ORDERED: ALBUTEROL 0.083% NEBU SOLN 3 ML VIAL INH PRN (20:24)
[2018-04-25] MEDS ORDERED: MoRPHine SULFATE 2 MG/ML CARP IV PRN (20:24)
[2018-04-25] MEDS ORDERED: ONDANSETRON INJ 2 MG/ML 2 ML VIAL IV PRN (20:24)
[2018-04-25] MEDS ORDERED: MAGNESIUM HYDROXIDE SUSP 30 ML UDC PO PRN (20:24)
[2018-04-25] MEDS ORDERED: DOXEPIN HCL 25 MG CAPSULE PO PRN (20:24)
[2018-04-25] MEDS ORDERED: MoRPHine SULFATE 4 MG/ML 1 ML CARP\\VIAL ONE (20:48)
[2018-04-25] MEDS ORDERED: INFLUENZA VIRUS QUAD VACCINE 0.5 ML SYR IM ONE (23:30)
[2018-04-25] MEDS ORDERED: INFLUENZA ADMINISTRATION CHARGE ONE (23:30)
--- NOTE | 2018-04-26 00:03 | Emergency Department Note ---
Entered by Sonia Diez acting as a scribe for Cachorro Kelley MD History of Present Illness General Chief complaint: Skin Problem Stated complaint: CYST ON TAILBONE, GROWING AND HURTING MORE Source: patient History of Present Illness Provider complaint: perianal cellulitis Onset (ago): hour(s) (today) Location: buttocks (perianal) Pain Consistency: + other (worsening) Maximum Pain Intensity: 8 Quality: + other (cyst) Associated symptoms: + fever/chills (febrile at 102) The patient is a 47 year old male who presents to the Emergency Room with complaints of perianal cellulitis today. The patient states that he was here earlier this morning and was diagnosed with perianal cellulitis. He states that his pain is worse now and reports that he was febrile at 102. The patient states that he left earlier because he had to "take care of some things." He states that he did not take any antibiotics yet. He also reports that he is being worked up for Crohn's Disease but is not on any meds. He does have sex with men. He is on Truvada for prophylaxis and states that he is HIV negative. Home Medications Home Medications Medication Instructions Recorded Confirmed Type albuterol sulfate 2.5 mg CONTINUOUS NEBULIZATION Q4H 04/25/18 04/25/18 History PRN albuterol sulfate [Ventolin HFA] 2 puff INHALATION QID PRN 04/25/18 04/25/18 History ciprofloxacin HCl [Cipro] 500 mg PO BID #20 tab 04/25/18 04/25/18 Rx doxepin 25 mg PO HS PRN 04/25/18 04/25/18 History emtricitabine-tenofovir (TDF) 1 tab PO DAILY 04/25/18 04/25/18 History [Truvada] fluoxetine 20 mg PO QPM 04/25/18 04/25/18 History fluoxetine 40 mg PO QAM 04/25/18 04/25/18 History lorazepam 1 mg PO DAILY PRN 04/25/18 04/25/18 History losartan 100 mg PO QAM 04/25/18 04/25/18 History methylphenidate HCl 5 mg PO QPM 04/25/18 04/25/18 History methylphenidate HCl 10 mg PO QAM 04/25/18 04/25/18 History metronidazole [Flagyl] 500 mg PO Q8H #30 tab 04/25/18 04/25/18 Rx pantoprazole 40 mg PO BID 04/25/18 04/25/18 History Allergies Allergy/AdvReac Type Severity Reaction Status Date / Time No Known Drug Allergies Allergy Unknown . Verified 04/25/18 18:28 Past Med/Surg History Medical History No significant past surgical history Crohns disease Darlyn-rectal abscess (Acute) Social History Current Living Situation: Other Current Living Situation Comment: FRIEND Feels Safe at Home: Yes Safety Concerns: Feels Safe At This Time Smoking Status: Current every day smoker Tobacco Type: cigarettes Cigarettes per Day: 20 Hx Alcohol Use: Yes Alcohol type: hard liquor Alcohol Intake Frequency: holidays/special occasions only Hx Substance Use: Yes substance use type: marijuana Beliefs That Will Affect Care: None Preferred Language: Ukrainian Communication Ability: Effective Operation Shift Supervisor Required: No Review of Systems See HPI for pertinent positives & negatives. and A total of 10 systems reviewed and were otherwise negative Physical Exam Vital Signs Vital Signs - 24 hr 04/25/18 17:48 04/25/18 19:42 04/25/18 20:25 Temperature 37.4 C 37.5 C Temperature Source Oral Oral Sepsis Recent Fever Within 48 Hours No Sepsis New/Unexplained Change in Mental Status No Sepsis Action Taken by Nursing No Action Required Pulse Rate 129 H Pulse Rate [Right Finger] 86 81 Pulse Rhythm [Right Finger] Regular Pulse Strength [Right Finger] Normal Respiratory Rate 22 18 20 Respiratory Effort / Characteristics Non-Labored Spontaneous Non-Labored Spontaneous Respiratory Depth Normal Normal Respiratory Pattern Regular Regular Blood Pressure 113/78 Blood Pressure [Right Arm] 107/59 L 103/60 Blood Pressure Mean 89 Blood Pressure Mean [Right Arm] 75 74 Blood Pressure Position [Right Arm] Sitting Pulse Oximetry 97 95 98 Oxygen Delivery Method Room Air Room Air Room Air Constitutional: Vital signs reviewed. Eyes: Pupils are equal round reactive to light. Conjunctiva are noninjected. ENT: Pharynx is clear without erythema or exudate. Mucous membranes are moist. Neck supple without meningeal signs. Respiratory: Clear to auscultation bilaterally. Breath sounds are equal bilaterally. Cardiovascular: Tachycardic rate, regular rhythm. No rubs or gallops. GI: Soft, nondistended and nontender. Bowel sounds are present. Musculoskeletal: No peripheral edema. No lower extremity tenderness. Integumentary: No cyanosis. Erythema to the left buttock and over the coccyx with some fluctuance and induration. Neurological: The patient is awake and alert. No focal deficits. Psychiatric: Normal affect. Course 1804: Past medical records reviewed. The patient was evaluated in room A2, and a complete history and physical examination were performed. 1816: I discussed the CT of the area in question of the abscess with Dr. Santiago. 181: I checked on the patient. He is HIV negative, is on Truvada prophylaxis, and has sex with men. 1824: I discussed the patient's case with Dr. Gali Flynn who will evaluate the patient for further management. 185: Frederick AGUILA-Jeanna drained 2 CCs of pus. Consultations Consultation #1: Dr. Santiago-Radiology Time: 18:16 Consultation #2: Dr. Gali Flynn Time: 18:24 Administered Medications Morphine Sulfate (Morphine Sulfate) 0.5 mg IV Q6H PRN PRN Reason: Pain Stop: 05/09/18 20:23 Last Admin: 04/25/18 20:55 Dose: 0.5 mg Discontinued Medications Hydromorphone HCl (Dilaudid) 1 mg IV NOW STA Stop: 04/25/18 18:26 Last Admin: 04/25/18 19:06 Dose: 1 mg Piperacillin Sod/Tazobactam Sod (Zosyn) 4.5 gm in 120 mls @ 240 mls/hr IV NOW ONE Stop: 04/25/18 18:54 Last Infusion: 04/25/18 19:43 Dose: 0 mls/hr Admin: 04/25/18 19:06 Dose: 240 mls/hr Morphine Sulfate (Morphine Sulfate) Confirm Administered Dose 4 mg .ROUTE .STK- MED ONE Stop: 04/25/18 20:49 Last Admin: 04/25/18 22:01 Dose: Not Given Ondansetron HCl (Zofran) 4 mg IV NOW STA Stop: 04/25/18 18:26 Last Admin: 04/25/18 19:06 Dose: 4 mg Medical Decision Making Differential Diagnosis The patient is a 47 year old male who presents to the ED with perianal cellulitis. Differential diagnosis includes abscess, phlegmon, cellulitis, bacteremia, and sepsis. Medical Records Attestation: I reviewed the patient's medical records. Home Medications Current Medication List: was personally reviewed by me Laboratory Data Attestation: I reviewed the patient's lab results. Result diagrams: 04/25/18 19:03 Lab Results 04/25/18 Range/Units 19:03 WBC 22.35 H (4.8-10.8) K/uL RBC 4.10 L (4.7-6.1) M/uL Hgb 14.2 (14.0-18.0) g/dL Hct 39.9 L (42-52) % MCV 97.3 (80-100) fL MCH 34.6 H (25-34) pg MCHC 35.6 (32-36) g/dL RDW Std Deviation 44.3 (36.4-46.3) fL RDW Coeff of Krissy 12.5 (11.5-14.5) % Plt Count 193 (130-400) K/uL MPV 9.1 (7.4-10.4) fL Immature Gran % (Auto) 0.4 % Neut % (Auto) 79.5 % Lymph % (Auto) 8.4 % Laurens % (Auto) 9.9 % Eos % (Auto) 1.6 % Baso % (Auto) 0.2 % Immature Gran # (Auto) 0.08 H (0.00-0.02) K/uL Neut # (Auto) 17.78 H (1.4-6.5) K/uL Lymph # (Auto) 1.87 (1.2-3.4) K/uL Laurens # (Auto) 2.22 H (0.11-0.59) K/uL Eos # (Auto) 0.36 (0-0.5) K/uL Baso # (Auto) 0.04 (0-0.2) K/uL Blood Pressure Blood Pressure Findings: Normal blood pressure MDM Narrative I did perform a limited focused review of portions of the patient's old chart on the electronic medical record. The patient was seen here at 0300 and was diagnosed with perianal cellulitis with a possible early abscess. Admission was recommended for the patient as he had a white count of 20. He left AMA with plans to return in 8 hours. I did evaluate the patient as noted above. IV access was established. I did treat the patient with Dilaudid IV and Zofran IV. The patient was placed on a continuous personnel monitor. I did order and review the patient's blood work as noted in the electronic medical record. His white count is 22,000. I did treat him with Zosyn IV. Frederick AGUILA did perform needle aspiration of the cutaneous abscess and was able to get out 2 mL of thick pus. I did discuss the case with the hospitalist and case supervisor. Impression & Plan Perianal cellulitis, Abscess Discharge Plan Visit Data *Final* Discharge Date/Time: 04/25/18 20:15 Chief Complaint: Skin Problem Stated Complaint: CYST ON TAILBONE, GROWING AND HURTING MORE ED Provider: Cachorro Kelley Discharge Problem: Perianal cellulitis, Abscess Patient Disposition: Admitted As Inpatient Discharge Instructions Interventions: ED Discharge Assessment Last Done: 04/25/18 20:15 The scribe's documentation has been prepared under my direction and personally reviewed by me in its entirety. I confirm that the note above accurately reflects all work, treatment, procedures, and medical decision making performed by me.
[2018-04-26] MEDS: METHYLPHENIDATE HCL 10 MG TABLET PO SCH ×3 (01:05→20:14)
[2018-04-26] MEDS: FLUOXETINE HCL 20 MG CAP PO SCH ×3 (01:06→20:06)
[2018-04-26] MEDS: PANTOprazole 40 MG TAB PO SCH ×3 (01:06→20:05)
[2018-04-26] MEDS: PIPERACILLIN/TAZOBACTAM 3.375 GM/115 ML BAG IV SCH ×3 (01:06→17:15)
[2018-04-26] MEDS ORDERED: MoRPHine SULFATE 2 MG/ML CARP IV PRN (01:37)
[2018-04-26] MEDS ORDERED: MoRPHine SULFATE 4 MG/ML 1 ML CARP\\VIAL ONE ×2 (02:59→07:51)
[2018-04-26 06:31] LABS: Basophils # (auto) 0.05 K/uL (0-0.2); Basophils % (auto) 0.3 %; Eosinophils # (auto) 0.43 K/uL (0-0.5); Eosinophils % (auto) 2.4 %; Hematocrit (blood only) 42.1 % (42-52); Hemoglobin 14.5 g/dL (14.0-18.0); Immature Granulocytes # (auto) 0.06 K/uL (0.00-0.02); Immature Granulocytes % (auto) 0.3 %; Lymphocytes % (auto) 10.5 %; Mean Corpuscular Hgb Conc 34.4 g/dL (32-36); Mean Corpuscular Volume 98.4 fL (80-100); Mean Platelet Volume 9.2 fL (7.4-10.4); Monocytes # (auto) 2.21 K/uL (0.11-0.59); Monocytes % (auto) 12.3 %; Neutrophils # (auto) 13.38 K/uL (1.4-6.5); Neutrophils % (auto) 74.2 %; Platelet Count 197 K/uL (130-400); RDW Coefficient of Variation 12.5 % (11.5-14.5); RDW Standard Deviation 45.1 fL (36.4-46.3); Red Blood Count 4.28 M/uL (4.7-6.1); White Blood Count 18.03 K/uL (4.8-10.8)
[2018-04-26 07:21] LABS: BUN Creatinine Ratio 8.5 (10-20); Calcium 8.4 mg/dl (8.5-10.1); Creatinine Clr Calc Pharmacy 108.9 ml/min; Est GFR (African American) 114.4; Est GFR (Non-African American) 98.7
[2018-04-26] MEDS: NICOTINE 21 MG/24 HR TDSY TD SCH (08:53)
[2018-04-26] MEDS ORDERED: LOSARTAN POTASSIUM 50 MG TAB PO SCH (09:00)
[2018-04-26] MEDS: EMTRICITABINE/TENOFOVIR TAB PO SCH (09:08)
[2018-04-26] MEDS: LORazepam 1 MG TAB PO PRN (09:10)
[2018-04-26] MEDS: ACETAMINOPHEN 1,000 MG/100 ML VIAL IV PRN ×2 (10:42→19:25)
--- NOTE | 2018-04-26 11:04 | Surgery Consultation ---
Date of Consultation April 26, 2018 Assessment & Plan (1) Perianal cellulitis: 47-year-old male with questionable history of Crohn's disease now with perianal cellulitis with what appears to be a phlegmon and possible small abscess. The abscess was aspirated in the ER yesterday and appears to be freely draining. There does not appear to be any undrained fluid at this time. The patient ate breakfast this morning. His white blood cell count is decreasing. The biggest concern is that if he does have a history of Crohn's disease this may represent perianal Crohn's disease with developing fistulous, and he may need further evaluation by gastroenterology and colorectal surgery as an outpatient. No acute surgical intervention today N.p.o. after midnight Continue antibiotics, consider adding Flagyl as it has been shown to hasten fistula closure in some studies We will reevaluate in the morning, possible EUA and I&D the in the OR if condition is not improved Surgery will follow, call with questions or concerns Outpatient follow-up with GI and possibly colorectal surgery Present on Admission?: Yes (2) Crohns disease: History of Present Illness Attending Physician: Dariela Mai MD History of Present Illness 47-year-old male admitted to the medicine service of her perianal cellulitis and small abscess. He has a history of similar small abscesses in the past that have all drained without intervention. He has been followed by GI over possible Crohn's disease, but is not currently on any biologic therapy as he is awaiting medical assistance. He had 2 similar small abscesses 10 days ago that drained on their own. Late last week he developed a new area that became hard and indurated and would not drain on its own. He came into the emergency department on Friday and had a leukocytosis to 19, a CT scan which showed a 1.5 cm phlegmon versus developing abscess with surrounding cellulitis, and was recommended for admission with IV antibiotics and possible surgical evaluation. He stated that he was not able to stay because he had business to take care of. He was prescribed Cipro and Flagyl, though he did not get these filled and did not take any antibiotics. He returned to the emergency department last night and his leukocytosis had increased to 22,000. The emergency department performed a needle aspiration of the fluid collection, though they did not get much out. The area has been draining since then. He is still complaining of pain in the area. He states he has not been able to have a bowel movement for 4 days due to the pain. Allergies Allergy/AdvReac Type Severity Reaction Status Date / Time No Known Drug Allergies Allergy Unknown . Verified 04/25/18 18:28 Home Medications Home Medications Medication Instructions Recorded Confirmed Type albuterol sulfate 2.5 mg CONTINUOUS NEBULIZATION Q4H 04/25/18 04/25/18 History PRN albuterol sulfate [Ventolin HFA] 2 puff INHALATION QID PRN 04/25/18 04/25/18 History ciprofloxacin HCl [Cipro] 500 mg PO BID #20 tab 04/25/18 04/25/18 Rx doxepin 25 mg PO HS PRN 04/25/18 04/25/18 History emtricitabine-tenofovir (TDF) 1 tab PO DAILY 04/25/18 04/25/18 History [Truvada] fluoxetine 20 mg PO QPM 04/25/18 04/25/18 History fluoxetine 40 mg PO QAM 04/25/18 04/25/18 History lorazepam 1 mg PO DAILY PRN 04/25/18 04/25/18 History losartan 100 mg PO QAM 04/25/18 04/25/18 History methylphenidate HCl 5 mg PO QPM 04/25/18 04/25/18 History methylphenidate HCl 10 mg PO QAM 04/25/18 04/25/18 History metronidazole [Flagyl] 500 mg PO Q8H #30 tab 04/25/18 04/25/18 Rx pantoprazole 40 mg PO BID 04/25/18 04/25/18 History Patient History Medical History No significant past surgical history Crohns disease Darlyn-rectal abscess (Acute) Social History Current Living Situation: Other Current Living Situation Comment: FRIEND Feels Safe at Home: Yes Safety Concerns: Feels Safe At This Time Smoking Status: Current every day smoker Tobacco Type: cigarettes Cigarettes per Day: 20 Hx Alcohol Use: Yes Alcohol type: hard liquor Alcohol Intake Frequency: holidays/special occasions only Hx Substance Use: Yes substance use type: marijuana Beliefs That Will Affect Care: None Preferred Language: Turkmen Communication Ability: Effective Lace Roller Required: No Review of Systems 10 point review of systems negative except as above Physical Exam 2 Vital Signs (Past 24 Hours): Last Vital Signs Temp 36.6 C 04/26/18 07:49 Pulse 72 04/26/18 07:49 Resp 16 04/26/18 07:49 BP 113/63 04/26/18 07:49 Pulse Ox 97 04/26/18 07:49 Constitutional: WD/WN, vitals as above no acute distress Eyes: PERRL, conjunctivae normal, anicteric sclerae ENMT: external ear and nose normal, oropharynx normal Neck: trachea midline, no thyromegaly Respiratory: normal respiratory effort, lungs clear to auscultation Cardiovascular: RRR, no murmur, no edema Gastrointestinal (Abdomen): normal bowel sounds, soft, nontender, no hepatosplenomegaly On exam he has erythema and induration mostly to the left of his gluteal cleft just below the coccyx. He has tenderness to palpation in this area. There is a 4 mm opening with some freely draining milky fluid. There is not appear to be any fluctuance or undrained fluid at this time. He has some tenderness extending towards his anus, but normal sphincter tone and no tenderness in his anal canal. Musculoskeletal: no cyanosis or clubbing, extremities motor strength 5/5 Skin: no rashes, warm and dry Neurologic: PERRL, EOMI, accommodation nl, no face palsy, no dysarthria Psychiatric: A+Ox3, euthymic affect Lymphatic: no cervical or axillary lymphadenopathy Results & Data Laboratory Results Laboratory Results - last 24 hr 04/25/18 04/26/18 04/26/18 19:03 06:03 06:03 WBC 22.35 H 18.03 H RBC 4.10 L 4.28 L Hgb 14.2 14.5 Hct 39.9 L 42.1 MCV 97.3 98.4 MCH 34.6 H 33.9 MCHC 35.6 34.4 RDW Std Deviation 44.3 45.1 RDW Coeff of Krissy 12.5 12.5 Plt Count 193 197 MPV 9.1 9.2 Immature Gran % (Auto) 0.4 0.3 Neut % (Auto) 79.5 74.2 Lymph % (Auto) 8.4 10.5 [place] % (Auto) 9.9 12.3 Eos % (Auto) 1.6 2.4 Baso % (Auto) 0.2 0.3 Immature Gran # (Auto) 0.08 H 0.06 H Neut # (Auto) 17.78 H 13.38 H Lymph # (Auto) 1.87 1.90 [place] # (Auto) 2.22 H 2.21 H Eos # (Auto) 0.36 0.43 Baso # (Auto) 0.04 0.05 Sodium 140 Potassium 4.0 Chloride 105 Carbon Dioxide 29 Anion Gap 6.0 BUN 8 D Creatinine 0.92 Est Cr Clr Drug Dosing 108.9 Est GFR ( Amer) 114.4 Est GFR (Non-Af Amer) 98.7 BUN/Creatinine Ratio 8.5 L Glucose 84 Calcium 8.[address] abd pelvis oral and IV con CLINICAL HISTORY: 47 years-old Male presenting with darlyn anal abscesses. Hx of Crohns. Fever. Pain along the left buttocks. TECHNIQUE: Multidetector CT of the abdomen and pelvis was performed after the administration of oral and intravenous contrast. IV contrast: 94 mL of Optiray 320. One or more dose lowering techniques were used consistent with the principles of ALARA (as low as reasonably achievable), including automatic exposure control, mA or kV adjustment to individual patient size, and/or use of iterative reconstruction. COMPARISON: 05/22/2017. CT DOSE (mGy.cm): The estimated cumulative dose is 402.96 mGy.cm. FINDINGS: Drilling Field Operator topogram: Unremarkable. Lung bases: Minimal dependent changes likely atelectasis. Normal heart size. No pericardial or pleural effusion. Liver: Normal morphology. No liver lesion. Patent hepatic vasculature. Biliary: No intrahepatic or extrahepatic biliary ductal dilatation. Normal gallbladder. Pancreas: Normal. Spleen: Normal. Adrenal glands: Normal. Kidneys and ureters: Normal. No hydronephrosis. Bladder: Incompletely evaluated secondary to underdistention. Pelvic organs: Prostate mildly enlargement likely secondary to benign prostatic hyperplasia. Bowel: Significant subcutaneous infiltration with associated skin thickening in the bilateral ischiorectal fossae along the medial gluteal cleft. Vague low- density region (series 3 image 445), measuring 1.5 cm in the midline of the medial gluteal cleft. This does not have rim enhancement and is somewhat poorly defined. A tiny focus of gas along the medial gluteal cleft is less likely to be within the cutis or subcutaneous tissue and more likely contained within the cleft itself. Wall thickening of the anus may be present at the external sphincter. The rectum is normal. The appendix is normal. No bowel obstruction. Resolution of prior wall thickening of proximal small bowel. Peritoneal cavity: No free fluid or intraperitoneal gas. Lymph nodes: No enlarged lymph nodes in the abdomen or pelvis. Vasculature: Atherosclerosis of the normal caliber abdominal aorta. IVC patent. Abdominal wall: Normal. Musculoskeletal: Normal. IMPRESSION: 1. Cellulitis along the medial gluteal cleft with significant inflammatory change in the ischiorectal fossae. 1.5 cm early abscess/phlegmon within the medial gluteal cleft. Possible inflammatory change of the inferior anus. No evidence of fistula. If there is clinical concern for fistula, a contrast- enhanced MR of the pelvis is more sensitive for this diagnosis. 2. Mild prostatic enlargement.
[2018-04-26] MEDS: MoRPHine SULFATE 4 MG/ML 1 ML CARP\\VIAL IV PRN ×3 (12:32→21:30)
--- NOTE | 2018-04-26 15:46 | Hospitalist Progress Note ---
Date of Service April 26, 2018 Assessment & Plan (1) Sepsis: - Presented with fevers, leukocytosis with rectal abscess/cellulitis. - Has been afebrile >12 hours; WBC trending down, 18.03 on labs this morning. - CT A/P: cellulitis along medial gluteal cleft with inflammation; 1.5 cm early abscess/phlegmon within gluteal cleft. - Blood cultures are negative to date. - No U/a or CXR obtained. - On Zosyn IV for empiric coverage; will add Flagyl per surgery recs. (2) Perianal cellulitis: - General surgery consulted, appreciate input. - NPO after midnight, will re-eval in morning and consider EUA and I&D in OR> - Will need outpt follow up with GI and possibly colorectal surgery. - Infectious work up as noted above; on IV abx. (3) Crohns disease: - Follows with Naty Madrigal. - Not currently on treatment; continue PPI BID (used for Crohn's, not GERD) (4) Constipation: - Has not had a BM in 4 days due to rectal pain. - Start Colace 100 mg BID with Miralax prn. (5) HTN (hypertension): - Continue Losartan 100 mg qAM as prescribed. (6) Depression: - Continue Fluoxetine 40 mg qAM, 20 mg qPM as prescribed. (7) ADHD: - Continue Ritalin 10 mg qAM, 5 mg qPM. (8) Encounter for long-term current use of medication: - On Truvada for HIV ppx; follows with Dr. Newman, has appt on 04/28/18. - Due for lab monitoring; LFTs WNL, HIV test pending. - Continue Truvada as prescribed. (9) Tobacco use disorder: - Nicotine patch ordered. - Encourage tobacco cessation. (10) DVT prophylaxis: - SCDs; Hold Lovenox for possible procedure. Dispo: Med/surg for rectal abscess/cellulitis, IV abx. Supervising Physician Co-Signing Physician Notes PA Supervision Note: I did not personally see or examine the patient today, but I verified all choi points of MINGO Aldana's assessment and plan with the following exceptions/ additions: None Subjective Pt. presented with perianal cellulitis and a rectal abscess. He has significant pain at site of abscess today. He has not been able to have a BM due to significant pain with bearing down. Surgery following, may go to OR tomorrow. Review of Systems All systems reviewed & are unremarkable except as noted in HPI & below Constitutional: + fever, + chills and + weakness Respiratory: no cough and no dyspnea Cardiovascular: no chest pain, no palpitations and no edema Gastrointestinal: + constipation; no abdominal pain, no nausea and no vomiting Integumentary: + new lesions (Rectal abscess) Physical Exam 2 Vital Signs (Past 24 Hours): Last Vital Signs Temp 37 C 04/26/18 15:10 Pulse 81 04/26/18 15:10 Resp 18 04/26/18 15:10 BP 109/64 04/26/18 15:10 Pulse Ox 97 04/26/18 15:10 Physical Exam: General: In mild distress 2/2 pain. HEENT: NC/AT; PERRLA with EOMI; [place] conjunctiva, MMM. Neck: Supple and nontender Cardiac: RRR w/o murmurs, gallops or rubs Lungs: CTA bilaterally; No rhonchi, wheezing, or rales Abdomen: Bowel normoactive X 4; Nontender to palpation Rectal: Palpable mass noted on left gluteal cleft, open area with no discharge noted. Tenderness to light palpation. Extremities: Warm. No edema present Neuro: No focal weakness Skin: No rash Results & Data Laboratory Results 04/26/18 04/26/18 04/26/18 Range/Units 06:03 06:03 06:03 WBC 18.03 H (4.8-10.8) K/uL RBC 4.28 L (4.7-6.1) M/uL Hgb 14.5 (14.0-18.0) g/dL Hct 42.1 (42-52) % MCV 98.4 (80-100) fL MCH 33.9 (25-34) pg MCHC 34.4 (32-36) g/dL RDW Std Deviation 45.1 (36.4-46.3) fL RDW Coeff of Krissy 12.5 (11.5-14.5) % Plt Count 197 (130-400) K/uL MPV 9.2 (7.4-10.4) fL Immature Gran % (Auto) 0.3 % Neut % (Auto) 74.2 % Lymph % (Auto) 10.5 % [place] % (Auto) 12.3 % Eos % (Auto) 2.4 % Baso % (Auto) 0.3 % Immature Gran # (Auto) 0.06 H (0.00-0.02) K/uL Neut # (Auto) 13.38 H (1.4-6.5) K/uL Lymph # (Auto) 1.90 (1.2-3.4) K/uL [place] # (Auto) 2.21 H (0.11-0.59) K/uL Eos # (Auto) 0.43 (0-0.5) K/uL Baso # (Auto) 0.05 (0-0.2) K/uL Sodium 140 (136-145) mmol/L Potassium 4.0 (3.5-5.1) mmol/L Chloride 105 (98-107) mmol/L Carbon Dioxide 29 (21-32) mmol/L Anion Gap 6.0 (3-11) BUN 8 D (7-18) mg/dl Creatinine 0.92 (0.6-1.4) mg/dl Est Cr Clr Drug Dosing 108.9 ml/min Est GFR ( Amer) 114.4 Est GFR (Non-Af Amer) 98.7 BUN/Creatinine Ratio 8.5 L (10-20) Glucose 84 (70-99) mg/dl Calcium 8.4 L (8.5-10.1) mg/dl HIV-1 RNA PCR copies/ml Pending HIV-1 RNA (PCR) log Pending 04/25/18 Range/Units 19:03 WBC 22.35 H (4.8-10.8) K/uL RBC 4.10 L (4.7-6.1) M/uL Hgb 14.2 (14.0-18.0) g/dL Hct 39.9 L (42-52) % MCV 97.3 (80-100) fL MCH 34.6 H (25-34) pg MCHC 35.6 (32-36) g/dL RDW Std Deviation 44.3 (36.4-46.3) fL RDW Coeff of Krissy 12.5 (11.5-14.5) % Plt Count 193 (130-400) K/uL MPV 9.1 (7.4-10.4) fL Immature Gran % (Auto) 0.4 % Neut % (Auto) 79.5 % Lymph % (Auto) 8.4 % [place] % (Auto) 9.9 % Eos % (Auto) 1.6 % Baso % (Auto) 0.2 % Immature Gran # (Auto) 0.08 H (0.00-0.02) K/uL Neut # (Auto) 17.78 H (1.4-6.5) K/uL Lymph # (Auto) 1.87 (1.2-3.4) K/uL [place] # (Auto) 2.22 H (0.11-0.59) K/uL Eos # (Auto) 0.36 (0-0.5) K/uL Baso # (Auto) 0.04 (0-0.2) K/uL Sodium (136-145) mmol/L Potassium (3.5-5.1) mmol/L Chloride (98-107) mmol/L Carbon Dioxide (21-32) mmol/L Anion Gap (3-11) BUN (7-18) mg/dl Creatinine (0.6-1.4) mg/dl Est Cr Clr Drug Dosing ml/min Est GFR ( Amer) Est GFR (Non-Af Amer) BUN/Creatinine Ratio (10-20) Glucose (70-99) mg/dl Calcium (8.5-10.1) mg/dl HIV-1 RNA PCR copies/ml HIV-1 RNA (PCR) log
[2018-04-26] MEDS: metroNIDAZOLE 500 MG/100 ML BAG IV SCH (17:19)
[2018-04-26] MEDS: DOCUSATE SODIUM 100 MG CAP PO SCH (20:14)
[2018-04-26] MEDS ORDERED: MoRPHine SULFATE 4 MG/ML 1 ML CARP\\VIAL IV PRN (23:54)
[2018-04-26] MEDS ORDERED: KETOROLAC TROMETHAMINE 15 MG/ML VIAL IV PRN (23:54)
[2018-04-26] MEDS ORDERED: KETOROLAC TROMETHAMINE 15 MG/ML VIAL ONE (23:59)
[2018-04-27] MEDS ORDERED: MoRPHine SULFATE 4 MG/ML 1 ML CARP\\VIAL ONE
[2018-04-27] MEDS: PIPERACILLIN/TAZOBACTAM 3.375 GM/115 ML BAG IV SCH ×3 (00:12→19:29)
[2018-04-27] MEDS: metroNIDAZOLE 500 MG/100 ML BAG IV SCH ×4 (00:12→23:18)
[2018-04-27 05:49] LABS: Hematocrit (blood only) 39.7 % (42-52); Hemoglobin 13.7 g/dL (14.0-18.0); Mean Corpuscular Hgb Conc 34.5 g/dL (32-36); Mean Corpuscular Volume 97.5 fL (80-100); Mean Platelet Volume 8.9 fL (7.4-10.4); Platelet Count 198 K/uL (130-400); RDW Coefficient of Variation 12.4 % (11.5-14.5); Red Blood Count 4.07 M/uL (4.7-6.1); White Blood Count 12.68 K/uL (4.8-10.8)
[2018-04-27 06:23] LABS: BUN Creatinine Ratio 9.6 (10-20); Calcium 8.3 mg/dl (8.5-10.1); Creatinine Clr Calc Pharmacy 107.8 ml/min; Est GFR (African American) 112.9; Est GFR (Non-African American) 97.4; Potassium 3.7 mmol/L (3.5-5.1)
--- NOTE | 2018-04-27 08:04 | Surgery Progress Note ---
Date of Service April 27, 2018 Assessment & Plan (1) Perianal cellulitis: 04/27/2018 47-year-old male with questionable history of Crohn's disease now with perianal cellulitis with what appears to be a phlegmon and possible small abscess. Patient continues to have pain- reports possible slight improvement in pain overnight. WBC improved this AM- 12.68 IV abx- per primary team Zosyn and Flagyl Patient afebrile overnight. Plan for OR this afternoon for incision and drainage. Patient seen and examined with Dr. Davis. 04/26/2018 47-year-old male with questionable history of Crohn's disease now with perianal cellulitis with what appears to be a phlegmon and possible small abscess. The abscess was aspirated in the ER yesterday and appears to be freely draining. There does not appear to be any undrained fluid at this time. The patient ate breakfast this morning. His white blood cell count is decreasing. The biggest concern is that if he does have a history of Crohn's disease this may represent perianal Crohn's disease with developing fistulous, and he may need further evaluation by gastroenterology and colorectal surgery as an outpatient. No acute surgical intervention today N.p.o. after midnight Continue antibiotics, consider adding Flagyl as it has been shown to hasten fistula closure in some studies We will reevaluate in the morning, possible EUA and I&D the in the OR if condition is not improved Surgery will follow, call with questions or concerns Outpatient follow-up with GI and possibly colorectal surgery (2) Crohns disease: Supervising Physician Co-Signing Physician Notes Patient seen and examined, agree with above. Patient with perianal cellulitis and small abscess that was aspirated in the ER. He has been treated with antibiotics and the abscess is freely draining. His white count is decreasing his inflammation is decreasing. However he still complains he is having significant pain. We discussed his options to include continued antibiotic treatment which I think will work for him, or exam under anesthesia with incision and drainage. Patient elects for surgery. Plan for anorectal exam under anesthesia, incision and drainage of perirectal abscess Risks were discussed to include but not limited to bleeding, infection, damage surrounding structures including sphincter muscle, recurrence, fistula, and the risk of anesthesia Plan of care was discussed, all questions answered, patient agreed to proceed with surgery as planned Subjective Patient reports continued pain at site of nroa-rectal abscess. Possible slight improvement in pain level from yesterday, but still painful. Physical Exam 2 Vital Signs (Past 24 Hours): Last Vital Signs Temp 36.9 C 04/26/18 23:28 Pulse 82 04/26/18 23:28 Resp 18 04/26/18 23:28 BP 122/72 04/26/18 23:28 Pulse Ox 96 04/26/18 23:28 Skin: left gluteal cleft- continued erythema, swelling, small amount of drainage noted. Area tender with palpation.
[2018-04-27] MEDS: MoRPHine SULFATE 4 MG/ML 1 ML CARP\\VIAL IV PRN ×4 (11:11→23:53)
--- NOTE | 2018-04-27 11:57 | Anesthesiology Consultation ---
Date of Service April 27, 2018 Assessment & Plan (1) Encounter for pre-operative examination: Chart Review Chart Review: Acceptable Risk for Surgery and Patient NOT seen in Pre Admission Testing Consults Requested none NPO Date Last Intake of Fluids: 04/27/18 Time Last Intake of Fluids: 00:00 Last Intake of Fluids Comment: discussed NPO status starting at midnight Date Last Intake of Solids: 04/27/18 Time Last Intake of Solids: 00:00 Last Intake of Solids Comment: discussed NPO status starting at midnight History Surgery Operation Date: 04/27/18 10:55 Proposed Procedures p Incision and Drainage Darlyn-Rectal Abscess - Waqar Davis DO, FACS Height/Weight Height: 6 ft Weight: 82 kg Allergies Allergy/AdvReac Type Severity Reaction Status Date / Time No Known Drug Allergies Allergy Unknown . Verified 04/25/18 18:28 Medications Home Medications Medication Instructions Recorded Confirmed Last Taken albuterol sulfate 2.5 mg CONTINUOUS NEBULIZATION Q4H 04/25/18 04/25/18 Unknown PRN albuterol sulfate [Ventolin HFA] 2 puff INHALATION QID PRN 04/25/18 04/25/18 Unknown ciprofloxacin HCl [Cipro] 500 mg PO BID #20 tab 04/25/18 04/25/18 04/25/18 AM doxepin 25 mg PO HS PRN 04/25/18 04/25/18 Unknown emtricitabine-tenofovir (TDF) 1 tab PO DAILY 04/25/18 04/25/18 04/25/18 [Truvada] fluoxetine 20 mg PO QPM 04/25/18 04/25/18 04/24/18 fluoxetine 40 mg PO QAM 04/25/18 04/25/18 04/25/18 lorazepam 1 mg PO DAILY PRN 04/25/18 04/25/18 Unknown losartan 100 mg PO QAM 04/25/18 04/25/18 04/25/18 methylphenidate HCl 5 mg PO QPM 04/25/18 04/25/18 04/24/18 methylphenidate HCl 10 mg PO QAM 04/25/18 04/25/18 04/25/18 metronidazole [Flagyl] 500 mg PO Q8H #30 tab 04/25/18 04/25/18 04/25/18 pantoprazole 40 mg PO BID 04/25/18 04/25/18 04/25/18 AM Active Medications Generic Name Dose Route Start Last Admin Trade Name Freq PRN Reason Stop Dose Admin Acetaminophen 650 mg 04/25/18 20:24 04/26/18 01:12 Tylenol PO 05/25/18 20:23 650 mg Q4H PRN Administration pain/fever Docusate Sodium 100 mg 04/26/18 21:00 04/26/18 20:14 Colace PO 05/26/18 20:59 100 mg BID NANCIE Administration Emtricitabine/Tenofovir 1 tab 04/26/18 09:00 04/26/18 09:08 Truvada 200 Mg-300 Mg PO 05/26/18 08:59 1 tab DAILY NANCIE Administration Fluoxetine HCl 20 mg 04/25/18 21:00 04/26/18 20:06 Prozac PO 05/25/18 20:59 20 mg QPM NANCIE Administration Fluoxetine HCl 40 mg 04/26/18 09:00 04/26/18 09:07 Prozac PO 05/26/18 08:59 40 mg QAM NANCIE Administration Piperacillin Sod/Tazobactam Sod 3.375 gm in 115 mls @ 28.75 mls/hr 04/26/18 00 :00 04/27/18 09:39 Zosyn IV 05/06/18 00:00 28.8 mls/hr Q8H NANCIE Administration Protocol Acetaminophen 1,000 mg in 100 mls @ 400 mls/hr 04/26/18 01:45 04/26/18 19:53 Ofirmev IV 05/26/18 01:44 Infused Q8H PRN Infusion Pain or Fever Metronidazole 500 mg in 100 mls @ 100 mls/hr 04/26/18 16:00 04/27/18 11:03 Flagyl IV 05/06/18 14:44 Infused Q8H NANCIE Infusion Ketorolac Tromethamine 15 mg 04/26/18 23:54 04/27/18 09:33 Toradol IV 05/01/18 23:53 15 mg Q6H PRN Administration Pain Lorazepam 1 mg 04/25/18 20:24 04/26/18 09:10 Ativan PO 05/25/18 20:23 1 mg DAILY PRN Administration Anxiety Losartan Potassium 100 mg 04/26/18 09:00 04/26/18 09:06 Cozaar PO 05/26/18 08:59 100 mg QAM NANCIE Administration Methylphenidate HCl 5 mg 04/25/18 21:00 04/26/18 20:14 Ritalin PO 05/09/18 20:59 5 mg QPM NANCIE Administration Methylphenidate HCl 10 mg 04/26/18 09:00 04/26/18 09:06 Ritalin PO 05/10/18 08:59 10 mg QAM NANCIE Administration Miscellaneous 1 ea 04/25/18 21:00 04/26/18 20:18 Remove Nicoderm Patch N/A 05/25/18 20:59 1 ea HS NANCIE Administration Morphine Sulfate 1 mg 04/27/18 00:08 04/27/18 11:11 Morphine Sulfate IV 05/10/18 23:53 1 mg Q2H PRN Administration Pain Nicotine 21 mg 04/26/18 09:00 04/26/18 08:53 Nicoderm Cq TD 05/26/18 08:59 21 mg QAM NANCIE Administration Pantoprazole Sodium 40 mg 04/25/18 21:00 04/26/18 20:05 Protonix PO 05/25/18 20:59 40 mg BID NANCIE Administration Past Medical History Medical History No significant past surgical history Crohns disease Darlyn-rectal abscess (Acute) Social History Smoking Status: Current every day smoker tobacco type: cigarettes Smoking cigarettes per day: 20 Hx Alcohol Use: Yes Alcohol type: hard liquor alcohol intake frequency: holidays/special occasions only Hx Substance Use: Yes substance use type: marijuana Physical Exam Vital Signs Last Vital Signs Temp 36.9 C 04/27/18 07:45 Pulse 72 04/27/18 07:45 Resp 19 04/27/18 07:45 BP 120/78 04/27/18 07:45 Pulse Ox 96 04/27/18 07:45 Testing Laboratory Results 04/27/18 05:35 04/27/18 05:35
[2018-04-27] MEDS: DOCUSATE SODIUM 100 MG CAP PO SCH ×2 (13:18→20:48)
[2018-04-27] MEDS: NICOTINE 21 MG/24 HR TDSY TD SCH (13:18)
[2018-04-27] MEDS: PANTOprazole 40 MG TAB PO SCH ×2 (13:19→20:48)
[2018-04-27] MEDS ORDERED: BUPIVACAINE 0.5 % 5 MG/1 ML MPF 30ML VIAL ONE (13:43)
[2018-04-27] MEDS ORDERED: GELATIN SPONGE SZ 100 ONE (13:43)
[2018-04-27] MEDS ORDERED: LIDOCAINE HCL 2% 2 ML VIAL/AMP(20MG/ML) INFIL ONE (13:53)
[2018-04-27] MEDS ORDERED: PROPOFOL IV EMULSION 10 MG/ML 20 ML VIAL IV ONE ×3 (13:53→15:28)
[2018-04-27] MEDS ORDERED: MIDAZOLAM HCL 1 MG/ML 2ML VIAL ONE (13:53)
[2018-04-27] MEDS ORDERED: DEXAMETHASONE SOD INJ 4 MG/ML VIAL ONE (13:53)
[2018-04-27] MEDS ORDERED: fentaNYL citrate 100 MCG/2 ML VIAL ONE (13:53)
[2018-04-27] MEDS ORDERED: ONDANSETRON INJ 2 MG/ML 2 ML VIAL ONE (13:53)
[2018-04-27] MEDS ORDERED: ePHEDrine sulfate 50 MG/ML AMP IV PRN (14:16)
[2018-04-27] MEDS ORDERED: PROMETHAZINE HCL 12.5 MG in SODIUM CHLORIDE 0.9% 50 ML IV PRN (14:16)
[2018-04-27] MEDS ORDERED: fentaNYL citrate 100 MCG/2 ML VIAL IV PRN (14:16)
[2018-04-27] MEDS ORDERED: ONDANSETRON INJ 2 MG/ML 2 ML VIAL IV PRN (14:16)
[2018-04-27] MEDS ORDERED: ATROPINE SULFATE 0.1 MG/ML 10ML SYR IV PRN (14:16)
[2018-04-27] MEDS ORDERED: BUPIVACAINE LIPOSOME 1.3% 266 MG/20 ML VIAL ONE (14:38)
[2018-04-27] MEDS ORDERED: KETAMINE HCL INJ 50 MG/ML 10 ML VIAL ONE (14:50)
--- NOTE | 2018-04-27 15:19 | Operative Report ---
Post Operative Report Pre & Post Diagnosis Preoperative diagnosis: Perirectal abscess Postoperative diagnosis: Perirectal abscess Procedure Procedure performed: Anorectal exam under anesthesia, incision and drainage of perirectal abscess Surgeon Waqar Davis DO, FACS [employer] Yanely Saavedra PA-C Estimated Blood Loss 5 Findings Consistent with Post-Op Diagnosis Perirectal abscess, counterincision performed, quarter inch [place] drain placed Specimens Perirectal abscess cultures Anesthesia Type MAC Complications none Disposition Accompanied Patient To Recovery: No Disposition: Recovery Room Indications 47-year-old male with suspected Crohn's disease presents with perianal cellulitis and possible abscess. After treatment with antibiotics and continued pain, plan for an rectal exam under anesthesia with incision and drainage of perirectal abscess. The risks of the procedure were discussed, all questions were answered, and the patient agreed to proceed with surgery as planned. Description of Procedure The patient was properly identified, consented, and taken to the operating room where he was placed in the supine position. Monitored anesthesia care was induced. The patient was then placed in high lithotomy position. SCDs and a safety belt were placed. The patient's anus and buttocks were prepped and draped in the standard sterile fashion. Surgical timeout was performed and all parties were in agreement that this was the correct patient and procedure to be performed and we continued as planned. The external anal exam revealed a small opening in area of induration and fluctuance consistent with a perirectal abscess. Digital rectal exam revealed no significant abnormality. Local anesthetic in the form of percent Marcaine was injected around the anus and perirectal abscess. An elliptical incision was made around the small opening. Purulent drainage was immediately returned, and this was sent for culture. Cavity was explored and appeared to continue along the left portion of the anus. Again, a DAMIEN was performed and no abnormalities were noted. A small counterincision was made overlying the end of the cavity on the left of the anus. The wound was irrigated. Exparel was injected. Hemostasis was achieved. A 1/4 inch [place] drain was brought through the counterincision and exited through the elliptical incision. This was sewn into place with 3-0 nylon suture x2. Hemostasis was achieved with electrocautery. 4 x 4's, and ABD, a disposable mid underwear were placed. Anesthesia was ceased, the patient was transferred to the PACU for recovery in stable condition. All sponge, instrument, needle counts were correct at the conclusion of the procedure. The patient tolerated the procedure well. The physician's distribution center assistant was present and scrubbed for the entire the case. She was critical in positioning the patient, prepping and draping, retraction and exposure, drain of the abscess, and placement of the dressings. I attest to the content of the Intraoperative Record and any orders documented therein. Any exceptions are noted below.
--- NOTE | 2018-04-27 15:40 | Anesthesiology Progress Note ---
Date of Service April 27, 2018 Anesthesia Post Procedure Vital Signs Vital Signs: Temp Pulse Pulse Resp BP BP Pulse Ox 04/27/18 13:35 37.1 C 68 18 130/84 95 04/27/18 11:30 37.0 C 70 20 122/74 97 04/27/18 07:45 36.9 C 72 19 120/78 96 04/26/18 23:28 36.9 C 82 18 122/72 96 Pain Intensity Buttock: Pain Intensity: 6 Notes Mental Status: alert / awake / arousable and participated in evaluation Nausea / Vomiting: adequately controlled Pain: adequately controlled Airway Patency, RR, SpO2: stable & adequate BP & HR: stable & adequate Hydration State: stable & adequate Anesthetic Complications: no major complications apparent and Pt Satisfied with anesthetic care
[2018-04-27] MEDS: FLUOXETINE HCL 20 MG CAP PO SCH ×3 (16:55→20:51)
[2018-04-27] MEDS: EMTRICITABINE/TENOFOVIR TAB PO SCH (16:56)
[2018-04-27] MEDS: METHYLPHENIDATE HCL 10 MG TABLET PO SCH ×3 (16:56→20:52)
[2018-04-27] MEDS: LORazepam 1 MG TAB PO PRN (17:09)
[2018-04-27] MEDS: POLYETHYLENE (MIRALAX) 17 GM PACK PO SCH (17:09)
[2018-04-27] MEDS: ACETAMINOPHEN 1,000 MG/100 ML VIAL IV PRN (19:06)
[2018-04-27] MEDS: LOSARTAN POTASSIUM 50 MG TAB PO SCH (20:48)
--- NOTE | 2018-04-27 20:48 | Hospitalist Progress Note ---
Date of Service April 27, 2018 Assessment & Plan (1) Sepsis: - Presented with fevers, leukocytosis, and source of rectal abscess/ cellulitis - Remains afebrile at this time and WBC at 12; BCx with NGTD - Currently on Zosyn/Flagyl therapy - S/P I&D on 04/27 and Cx obtained - Per ED note patient does have sex with men and therefore will need to be mindful of recovery and STI-type organisms and will await Cx; given his suspected Crohns this could be contributing too - Gen Surg following - discussed with Yanely and Dr. Davis - plan for OR Present on Admission?: Yes (2) Perianal cellulitis: - Treatment as above Present on Admission?: Yes (3) Crohns disease: - Follows with Naty Madrigal and has F/U appointment on - Not currently on treatment; continue PPI BID - States he is due to have a double balloon study in [place] possibly in May as he had a capsule study but passed to camera in approx. 4 hours Present on Admission?: Yes (4) Constipation: - Has not had a BM in 4 days due to rectal pain. - Continue Colace 100 mg BID with Miralax prn. Present on Admission?: Yes (5) HTN (hypertension): - Continue Losartan 50 mg BID Present on Admission?: Yes (6) Depression: - Continue Fluoxetine 40 mg qAM and 20 mg qPM Present on Admission?: Yes (7) ADHD: - Continue Ritalin 10 mg qAM and 5 mg qPM. Present on Admission?: Yes (8) Encounter for long-term current use of medication: - On Truvada for HIV ppx started approx. 4 months ago; follows with Dr. Newman, has appt on 04/28/18. - Due for lab monitoring; LFTs WNL, HIV test pending - can discuss with Dr. Newman tomorrow - Continue Truvada as prescribed. Present on Admission?: Yes (9) Tobacco use disorder: - Nicotine patch ordered. - Encourage tobacco cessation. Present on Admission?: Yes (10) DVT prophylaxis: - SCDs Dispo: Await Cx for finalized Abx regimen Subjective Patient reports he is feeling well just hungry during my visit. Continues to have some drainage from abscess site and had I&D this afternoon. Reports pain is better with Dilaudid. Verbalizes no other complaints at this time Constitutional: no fever and no chills Respiratory: no cough and no dyspnea Cardiovascular: no chest pain Gastrointestinal: + abdominal pain (intermittent low abdominal pain - crampy); no nausea, no vomiting, no constipation and no diarrhea/loose stools Genitourinary (Male): no dysuria Physical Exam 2 Vital Signs (Past 24 Hours): Last Vital Signs Temp 36.8 C 04/27/18 20:07 Pulse 70 04/27/18 20:07 Resp 18 04/27/18 20:07 BP 127/82 04/27/18 20:07 Pulse Ox 97 04/27/18 20:07 Constitutional: well developed and well nourished; no acute distress and not ill appearing Eyes: + anicteric sclerae Neck: trachea midline Respiratory: normal respiratory effort, lungs clear to auscultation Cardiovascular: RRR, no murmur, no edema Gastrointestinal (Abdomen): Inspection/Auscultation: normal bowel sounds Percussion/Palpation: abdomen soft; abdomen nontender Musculoskeletal: Head/Neck/Chest: normocephalic, head atraumatic and neck supple Skin: no rashes, warm and dry Psychiatric: A+Ox3, euthymic affect
[2018-04-28] MEDS: PIPERACILLIN/TAZOBACTAM 3.375 GM/115 ML BAG IV SCH ×2 (01:14→07:53)
[2018-04-28] MEDS: MoRPHine SULFATE 4 MG/ML 1 ML CARP\\VIAL IV PRN ×2 (02:53→08:03)
[2018-04-28 04:02] VITALS: PULSE 60
--- NOTE | 2018-04-28 07:48 | Surgery Progress Note ---
Date of Service April 28, 2018 Assessment & Plan (1) Darlyn-rectal abscess: POD #1 s/p Incision and Drainage Darlyn-rectal Abscess- placement of Jhonatan drain intraoperatively. Patient doing well- pain improved since admission. Patient ok for discharge from surgical standpoint. Discharge per primary team. PO Antibiotics per primary team. Patient to follow-up in General Surgery clinic early next week for drain removal in clinic. Return precautions reviewed. Both verbal and written discharge instructions provided. Subjective Patient resting in bed- reports rectal pain improved since before surgery. States that he had some drainage overnight- dressing changed by nursing Physical Exam 2 Vital Signs (Past 24 Hours): Last Vital Signs Temp 36.8 C 04/28/18 04:01 Pulse 60 04/28/18 04:01 Resp 18 04/28/18 04:01 BP 117/68 04/28/18 04:01 Pulse Ox 97 04/28/18 04:01
[2018-04-28] MEDS: metroNIDAZOLE 500 MG/100 ML BAG IV SCH (07:52)
[2018-04-28] MEDS: PANTOprazole 40 MG TAB PO SCH (07:53)
[2018-04-28] MEDS: NICOTINE 21 MG/24 HR TDSY TD SCH (07:54)
[2018-04-28] MEDS: DOCUSATE SODIUM 100 MG CAP PO SCH (07:54)
[2018-04-28] MEDS: LOSARTAN POTASSIUM 50 MG TAB PO SCH (07:54)
[2018-04-28] MEDS: FLUOXETINE HCL 20 MG CAP PO SCH (07:55)
[2018-04-28] MEDS: POLYETHYLENE (MIRALAX) 17 GM PACK PO SCH (08:04)
[2018-04-28] MEDS: METHYLPHENIDATE HCL 10 MG TABLET PO SCH (08:04)
[2018-04-28 08:28] VITALS: BP 123/72; TEMP 98.4; O2SAT 98
[2018-04-28] MEDS ORDERED: HYDROCODONE/ACETAMOPHEN 5/325MG TAB PO PRN (08:35)
[2018-04-28] MEDS: EMTRICITABINE/TENOFOVIR TAB PO SCH (08:42)
[2018-04-28] MEDS: ACETAMINOPHEN 1,000 MG/100 ML VIAL IV PRN (08:59)
[2018-04-28] MEDS ORDERED: CIPROFLOXACIN 500 MG TAB PO SCH (09:15)
[2018-04-28] MEDS ORDERED: metroNIDAZOLE 500 MG TAB PO SCH (14:00)
--- NOTE | 2018-04-28 18:29 | Discharge Summary ---
Date of Service April 28, 2018 Admission HPI Per Admitting Provider 47 y/o M c/o rectal pain. Pt has been having ongoing and worsening rectal pain for the last 4-5 days. He has a hx of rectal abscesses and this was similar. He had two cysts that ruptured, but he noted another cyst that did not rupture and this is where he felt his pain was coming from. Pt was seen in the ED Friday night into Friday morning. He was recommended for admission with IV abx tx at that time, however pt left AMA due to some sort of urgent errands stating he would be back today. He was given scripts for cipro/flagyl and advised that this would likely not resolve this issue. Pt states he attempted to take care of his urgent matters, but his pain continued to worsen causing ambulation issues, so he returned. Pt cannot stand or sit comfortably. He has not had a bowel movement x3 days because it hurts too much to bear down. He has nausea without emesis. He started having fever yesterday. Pt always has LLQ pain which is believed to be Crohns. He has no new pain. Pt denies fever, SOB , chest pain, c/d, LE pain or swelling. In the past, his abscesses have either ruptured on their own or resolved with abx. Pain meds have helped, but pain is returned. Pt states he may have Crohn's. He is working with GI currently. Due to insurance issues, he is not on biologics but is awaiting approval for medical assistance for this. He states that it is thought that his abscess issues are related to his Crohn's. Pt takes Truvada for HIV prophylaxis. He is due for LFTS and HIV screening. Principal Diagnosis Perianal abscess Discharge Exam Constitutional well developed and well nourished; no acute distress and not ill appearing Eyes + anicteric sclerae Neck trachea midline Respiratory normal respiratory effort, lungs clear to auscultation Cardiovascular RRR, no murmur, no edema Gastrointestinal (Abdomen) Inspection/Auscultation: normal bowel sounds Percussion/Palpation: abdomen soft; abdomen nontender rizwan drain present with drainage noted on covering dressing; no erythema of gluteus region; some mild tenderness to palpation near L upper gluteal region Musculoskeletal Head/Neck/Chest: normocephalic, head atraumatic and neck supple Skin no rashes, warm and dry Psychiatric A+Ox3, euthymic affect Discharge Data Allergies Allergy/AdvReac Type Severity Reaction Status Date / Time No Known Drug Allergies Allergy Unknown . Verified 04/25/18 18:28 Consultations 04/25/18 18:25 ED Decision to Admit Stat 04/25/18 20:24 Consult General Surgery Routine Procedures Performed Operation Date: 04/27/18 10:55 Actual Procedures p Incision and Drainage Darlyn-Rectal Abscess - Waqar Davis, DO, FACS Hospital Course (1) Sepsis: - Presented with fevers, leukocytosis, and source of rectal abscess/ cellulitis - Remains afebrile at this time and WBC at 12; BCx with NGTD - S/P I&D on 04/27 and Cx obtained with no growth but was on antibiotics previously -will complete a course of Cipro and Flagyl and will follow up on with general surgery to have drain removed -Patient does have sex with men and therefore will need to be mindful of recovery and STI-type organisms and will await Cx; given his suspected Crohns this could be contributing too - Gen Surg followed -outpatient follow-up at surgery clinic (2) Perianal cellulitis: - Treatment as above (3) Crohns disease: - Follows with Naty Madrigal and has F/U appointment on - Not currently on treatment; continue PPI BID - States he is due to have a double balloon study in [place] possibly in May as he had a capsule study but passed to camera in approx. 4 hours (4) Constipation: - Has not had a BM in 4 days due to rectal pain but now moving his bowels -recommend stool softeners until abscess improves (5) HTN (hypertension): - Continue Losartan 50 mg BID (6) Depression: - Continue Fluoxetine 40 mg qAM and 20 mg qPM (7) ADHD: - Continue Ritalin 10 mg qAM and 5 mg qPM. (8) Encounter for long-term current use of medication: - On Truvada for HIV ppx started approx. 4 months ago; follows with Dr. Newman, had appt on 04/28/18 -did discuss with Dr. Newman that his LFTs are within normal limits we have an HIV test pending and they will follow-up with him in the near future - Continue Truvada as prescribed. (9) Tobacco use disorder: - Nicotine patch ordered. - Encourage tobacco cessation. Total Time Total Time Spent Total Time Spent (In Minutes): Greater than 30 minutes Discharge Plan Discharge Items Patient Disposition: Home - Self-Care Reason For Visit: PERIANAL ABSCESS Discharge Diagnosis: Perianal Abscess Discharge Goals: Decrease discomfort, Improve disease control and Prevent disease Activity: Resume your previous activity Bathing Comment: No baths only showers Sexual Activity: Wait until after follow-up appointment Non-emergency contact: Primary Care Provider Call non-emergency contact if: you have any medication questions, you have a fever and your wound pain has increased Follow-up/Referrals: Kristy Madrigal CRNP [Family Provider] - 04/30/18 11:40 am (Please, follow up at [facility] with Kristy ALONZO on April 30 at 11:40 am. *This office is located at [address] [place] [address] in [facility]). If you need to change this appointment, call the office at [phone].) Waqar Davis DO, NATALIYA [Physician] - (Please call the General Surgery clinic at [phone] to schedule an appointment to have drain removed next Friday, May 04, 2018. Drain will be removed in the General Surgery clinic. Please call the clinic with any questions or concerns. ) Diet: Regular Addtl Provider Instructions: You may shower, but do not soak or scrub open incision. You may need to change your dressing throughout the day if it becomes saturated. Please call the General Surgery clinic at [phone] to schedule an appointment for drain removal on Friday, May 04, 2018. Drain removal will be done at General Surgery clinic located at [address] [place], [place] [address] [address]. Rectal Abscess: - You had a drainage of this abscess on 04/27 and a drain placed. Please follow the directions given by the Surgeons for care. They want to see you next week to have the drain removed. Please read instructions above - You will need to complete a course of Antibiotics. This will be Ciprofloxacin 500 mg twice a day and Flagyl 500 mg three times a day to complete the course. If you have left over medication from when the ER gave this to you before admission you can use this. If not, a new prescription was sent to your pharmacy Crohns Disease: - Please follow-up with the GI providers on at 1140 Constipation: - Moving your bowels can be more painful until this heals up. It will be important to try and avoid constipation by either using a stool softener or a laxative if needed. Pain medication can cause some constipation so be mindful of this. Home Medications: - Please take your home medications as previously prescribed as we did not make any changes to these Prescriptions: New hydrocodone-acetaminophen [[place]] 5-325 mg Tablet 1 tab PO Q4H PRN (Reason: pain) 3 Days Qty: 18 RF: 0 docusate sodium 100 mg Capsule 100 mg PO BID 30 Days Qty: 60 RF: 0 Continue albuterol sulfate 90 mcg/actuation HFA aerosol inhaler 2 puff Inhalation QID PRN (Reason: Shortness Of Breath) RF: 0 albuterol sulfate 2.5 mg /3 mL (0.083 %) Solution For Nebulization 2.5 mg Continuous Nebulization Q4H PRN (Reason: Shortness Of Breath) RF: 0 doxepin 25 mg capsule 25 mg PO HS PRN (Reason: Sleep) RF: 0 fluoxetine 20 mg capsule 20 mg PO QPM RF: 0 fluoxetine 40 mg capsule 40 mg PO QAM RF: 0 lorazepam 1 mg tablet 1 mg PO DAILY PRN (Reason: Anxiety) RF: 0 methylphenidate HCl 10 mg tablet 10 mg PO QAM RF: 0 methylphenidate HCl 5 mg tablet 5 mg PO QPM RF: 0 emtricitabine-tenofovir (TDF) 200-300 mg tablet 1 tab PO DAILY RF: 0 pantoprazole 40 mg tablet,delayed release (DR/EC) 40 mg PO BID RF: 0 metronidazole [Flagyl] 500 mg tablet 500 mg PO Q8H Qty: 16 RF: 0 ciprofloxacin HCl [Cipro] 500 mg tablet 500 mg PO BID Qty: 11 RF: 0 Changed losartan 100 mg tablet 50 mg PO BID Qty: 0 RF: 0 Stand-Alone Forms: [facility], Opioid Pain Management, Work/ School Release (Inpt) Discharge Orders: Discharge Order (Routine); Ordered 04/28/18 Ordered By: Christy Brantley Admission Data Admit Date/Time: 04/25/18 18:50 Attending Provider: Tk Ivory Admit Provider: Winifred Mast Primary Care Provider: Daniel Payne III Other Providers: Waqar Davis ; Winifred Mast Service: Medical Other Interventions: Discharge Summary Assessment (RN) Last Done: 04/28/18 11:45 Pending Studies at Discharge: Yes Studies:: HIV testing DC Date/Time DO NOT enter until pt leaves facility: 04/28/18 13:15
[2018-04-29 13:57] LABS: HIV 1 RNA PCR Copies/ML <20 NOT DETECTED COPIES/mL (<20); HIV-1 RNA Log Copies/mL <1.30 NOT DETECTED (<1.30)
== END 2018-04-28 13:15 | disposition home or self-care (01) | DRG 854 ==
LOC: ED 17:44 → SUATTDRO 18:50 → 3W 18:50